=== PATIENT | female | born 2000 | race Caucasian/White ===

== ENCOUNTER 2019-07-26 02:38 | Emergency (ER) | payer OTHER ==
--- NOTE | 2019-07-26 02:44 | ED Physician Documentation ---
History of Present Illness - Stated complaint Stated Complaint: VOMITING - History obtained from History obtained from: Patient (the patient is a 19 y/o AD [employer] F who is stationed at [place] who is on LIMDU for "chronic abd pain" who p/w abd pain and vomiting. The patient is here visiting and had another flare up of her abd pain with vomiting. she denies any hx of abd surgeries. denies hematemesis or hematochezia, describe diffuse abd pain with vomiting, denies drug use.) Review of Systems Constitutional: reports: Reviewed and negative Eyes: reports: Reviewed and negative Ears: reports: Reviewed and negative Nose: reports: Reviewed and negative Throat: reports: Reviewed and negative Cardiac: reports: Reviewed and negative Respiratory: reports: Reviewed and negative GI: reports: Abdominal Pain, Nausea, Vomiting : reports: Reviewed and negative Skin: reports: Reviewed and negative Musculoskeletal: reports: Reviewed and negative Neurologic: reports: Reviewed and negative Psychiatric: reports: Reviewed and negative Endocrine: reports: Reviewed and negative Immunocompromised: reports: Reviewed and negative PD PAST MEDICAL HISTORY - Present Medications Home Medications: Ambulatory Orders Medication Instructions Recorded Confirmed Amitriptyline [Elavil] 75 mg PO DAILY 07/26/19 07/26/19 Ondansetron HCl [Zofran] 1 tab Q8HR 07/26/19 07/26/19 Promethazine [Phenergan] 1 tab Q8HR 07/26/19 07/26/19 - Allergies Allergies/Adverse Reactions: Allergies Allergy/AdvReac Type Severity Reaction Status Date / Time naproxen Allergy Edema Verified 07/26/19 02:49 PD ED PE NORMAL - Vitals Vital signs reviewed: Yes - General General: Alert and oriented X 3, No acute distress, Well developed/nourished - HEENT HEENT: Atraumatic, PERRL, Moist mucous membranes, Pharynx benign - Neck Neck: Supple, no meningeal sign, No adenopathy - Cardiac Cardiac: RRR, No murmur, Strong equal pulses - Respiratory Respiratory: No respiratory distress, Clear bilaterally - Abdomen Abdomen: Soft, Non distended, No organomegaly, Other (diffusely tender to palpation, no guarding, no point ttp, neg murphys/rovsings/psoas, no rebound, no midline abd pulsatile mass) - Derm Derm: Warm and dry - Extremities Extremities: No deformity - Neuro Neuro: Alert and oriented X 3 - Psych Psych: Normal mood, Normal affect Results - Vitals Vitals: Vital Signs - 24 hr 07/26/19 07/26/19 07/26/19 02:40 03:11 03:43 Temperature 36.7 C Heart Rate 92 88 76 Respiratory 18 16 Rate Blood Pressure 113/92 H 99/62 112/68 O2 Saturation 100 100 98 Oxygen O2 Source Room air - Labs Labs: Laboratory Tests 07/26/19 07/26/19 07/26/19 03:05 03:05 03:05 WBC 7.4 RBC 4.35 Hgb 14.2 Hct 40.5 MCV 93.1 MCH 32.6 H MCHC 35.1 RDW 11.7 L Plt Count 209 MPV 9.8 Neut # (Auto) 5.0 Lymph # (Auto) 1.8 Delta # (Auto) 0.5 Eos # (Auto) 0.1 Baso # (Auto) 0.0 Absolute Nucleated RBC 0.00 Nucleated RBC % 0.0 PT 12.7 H INR 1.1 APTT 25.5 Sodium 138 Potassium 3.3 L Chloride 103 Carbon Dioxide 24 Anion Gap 11.0 BUN 11 Creatinine 0.8 Estimated GFR (MDRD) 91 Glucose 103 H POC Whole Bld Glucose Lactic Acid Calcium 9.0 Total Bilirubin 0.8 AST 17 ALT 16 Alkaline Phosphatase 49 Total Creatine Kinase 45 Total Protein 7.1 Albumin 4.3 Globulin 2.8 Albumin/Globulin Ratio 1.5 Lipase 28 07/26/19 07/26/19 03:05 03:19 WBC RBC Hgb Hct MCV MCH MCHC RDW Plt Count MPV Neut # (Auto) Lymph # (Auto) Delta # (Auto) Eos # (Auto) Baso # (Auto) Absolute Nucleated RBC Nucleated RBC % PT INR APTT Sodium Potassium Chloride Carbon Dioxide Anion Gap BUN Creatinine Estimated GFR (MDRD) Glucose POC Whole Bld Glucose 78 Lactic Acid 1.0 Calcium Total Bilirubin AST ALT Alkaline Phosphatase Total Creatine Kinase Total Protein Albumin Globulin Albumin/Globulin Ratio Lipase PD MEDICAL DECISION MAKING - ED course Complexity details: reviewed results, re-evaluated patient (04:44 patient ree xamined, her abd is soft non tender and non distended, she is asking for pain medication, I explained to the patient that she would need to provide a urine sample first. the patient is refusing to provide a urine sample. i discussed with her that her DMITRIY results showed patient visiting multiple ERs in the area with repeated visits her DMITRIY reports shows 16 visits over to non [facility] hospitals over the last 12 months, this does not include her extensive number of visits to [facility] over the last 12 months. The patient is currently on LIMDU for abdominal pain and she is scheduled to go to her medical doctor this morning at 7 am in [place]. I explained that patient should follow up today with [facility]. ), considered differential (acute on chronic abd pain), d/w patient Departure - Departure Disposition: 01 Home, Self Care Clinical Impression: Abdominal pain Qualifiers: Abdominal location: unspecified location Qualified Code(s): R10.9 - Unspecified abdominal pain Condition: Stable Instructions: ED Abdominal Pain Unkn Cause Follow-Up: your, doctor [Other] - 07/26/19 Comments: call your [facility] doctor today for follow up.
[2019-07-26] MEDS ORDERED: MORPHINE 2 MG/ML CARPUJECT IVP STA (02:45)
[2019-07-26] MEDS ORDERED: SODIUM CHLORIDE 0.9% 1,000 ML IV ONE ×2 (02:45→03:51)
[2019-07-26] MEDS ORDERED: ONDANSETRON 4 MG/2 ML VIAL IVP STA (02:45)
[2019-07-26 03:24] LABS: BASOPHILS % (AUTO) 0.5 %; EOSINOPHILS # (AUTO) 0.1 10^3/uL (0.0-0.7); EOSINOPHILS % (AUTO) 1.1 %; HGB - HEMOGLOBIN 14.2 g/dL (12.0-16.0); LYMPHOCYTES # (AUTO) 1.8 10^3/uL (1.5-3.5); LYMPHOCYTES % (AUTO) 23.9 %; MEAN CORPUSCULAR HEMOGLOBIN 32.6 pg (27.0-31.0); MEAN CORPUSCULAR HGB CONC 35.1 g/dL (32.0-36.0); MEAN CORPUSCULAR VOLUME 93.1 fL (81.0-99.0); MEAN PLATELET VOLUME 9.8 fL (7.9-10.8); MONOCYTES # (AUTO) 0.5 10^3/uL (0.0-1.0); MONOCYTES % (AUTO) 6.5 %; NEUTROPHILS % (AUTO) 67.7 %; PLT - PLATELET COUNT 209 10^3/uL (130-450); RED BLOOD COUNT 4.35 10^6/uL (4.20-5.40); RED CELL DISTRIBUTION WIDTH 11.7 % (12.0-15.0); WHITE BLOOD COUNT 7.4 x10^3/uL (4.8-10.8)
[2019-07-26 03:29] LABS: INR 1.1 (0.8-1.2); PT - PROTHROMBIN TIME 12.7 secs (9.9-12.6)
[2019-07-26 03:34] LABS: ALBUMIN 4.3 g/dL (3.2-5.5); ALBUMIN/GLOBULIN RATIO 1.5 (1.0-2.2); BILIRUBIN,TOTAL 0.8 mg/dL (0.2-1.0); CREATININE 0.8 mg/dL (0.4-1.0); TOTAL PROTEIN 7.1 g/dL (6.7-8.2)
[2019-07-26 03:36] LABS: PARTIAL THROMBOPLASTIN TIME 25.5 secs (24.9-33.3)
[2019-07-26 05:11] VITALS: BP 132/76
[2019-07-26 05:25] LABS: MUDS CUTOFF CONCENTRATIONS CUTOFF CONC BELOW:
[2019-07-26 05:26] LABS: GLUCOSE, URINE (UA) 100 mg/dL (NEGATIVE); KETONES,URINE (UA) 40 mg/dL (NEGATIVE); OCCULT BLOOD,URINE NEGATIVE (NEGATIVE)
[2019-07-26 05:39] LABS: CLARITY,URINE CLEAR (CLEAR)
[2019-07-26 05:40] LABS: BILIRUBIN,URINE NEGATIVE (NEGATIVE); ICTOTEST,URINE NEGATIVE
[2019-07-26 05:43] LABS: AMPHETAMINE SCREEN,URINE NEGATIVE (NEGATIVE); BACTERIA,URINE None Seen /HPF (None Seen); BENZODIAZEPINES SCREEN, URINE NEGATIVE (NEGATIVE); COCAINE SCREEN URINE NEGATIVE (NEGATIVE); HCG UR QUAL NEGATIVE; METHADONE SCREEN, URINE NEGATIVE (NEGATIVE); METHAMPHETAMINES SCREEN, URINE NEGATIVE (NEGATIVE); OPIATE SCREEN, URINE POSITIVE (NEGATIVE); OXYCODONE SCREEN, URINE NEGATIVE (NEGATIVE); PROPOXYPHENE SCREEN, URINE NEGATIVE (NEGATIVE); RBC,URINE 0-5 /HPF (0-5); SQUAMOUS EPITHELIAL CELL,UR FEW Squamous (<= Few); TRICYCLIC ANTIDEPRESSANT,URINE POSITIVE (NEGATIVE)
== END 2019-07-26 05:49 | disposition home or self-care (01) ==
LOC: ED 02:38
DX: R10.9 Unspecified abdominal pain (principal)
CPT/HCPCS: 36415; 80053; 80306; 81001; 81003; 81025; 82550; 83605; 83690; 85025; 85610; 85730; 87086; 96374; 99284

== ENCOUNTER 2019-09-06 15:24 | Emergency (ER) | payer OTHER ==
--- NOTE | 2019-09-06 15:42 | ED Physician Documentation ---
PD HPI UPPER EXT INJURY - Stated complaint Stated Complaint: R ARM INJURY - Chief complaint Chief Complaint: Ext Problem - History obtained from History obtained from: Patient - History of Present Illness Location: Right, Shoulder, Elbow, Wrist Type of injury: Fall (fell down long flight of stairs 3 days ago, with landing onto left arm and twisting of the arm/shoulder as she fell. No head injury.) Where injury occurred: Work Timing - onset: How many days ago (2) Timing - details: Abrupt onset, Still present (pain with ROM of elbow and shoulder, wrist tender to palpation) Improved by: Rest Worsened by: Moving, Palpating Associated symptoms: Swelling (mild of elbow and wrist; not shoulder.). No: Weakness, Numbness Similar symptoms before: Diagnosis (had rotator cuff injury with repair few years ago; had goog function of shoulder after.) Review of Systems Constitutional: denies: Fever, Chills Nose: denies: Rhinorrhea / runny nose, Congestion Throat: denies: Sore throat Respiratory: denies: Cough GI: denies: Nausea, Vomiting, Diarrhea Skin: denies: Abrasion (s), Laceration (s) Neurologic: denies: Focal weakness, Numbness, Altered mental status, Headache PD PAST MEDICAL HISTORY - Past Medical History Neuro: Headaches Endocrine/Autoimmune: Other GI: Other Psych: Bipolar disorder - Past Surgical History Past Surgical History: No - Present Medications Home Medications: Ambulatory Orders Medication Instructions Recorded Confirmed Amitriptyline [Elavil] 75 mg PO DAILY 07/26/19 07/26/19 Ondansetron HCl [Zofran] 1 tab Q8HR 07/26/19 07/26/19 Promethazine [Phenergan] 1 tab Q8HR 07/26/19 07/26/19 Tramadol HCl 50 mg PO Q6H PRN #15 tablet 09/06/19 - Allergies Allergies/Adverse Reactions: Allergies Allergy/AdvReac Type Severity Reaction Status Date / Time naproxen Allergy Edema Verified 09/06/19 15:27 - Social History Does the pt smoke?: No Smoking Status: Never smoker Does the pt drink ETOH?: Yes - Immunizations Immunizations are current?: Yes PD ED PE NORMAL - Vitals Vital signs reviewed: Yes - General General: Alert and oriented X 3, No acute distress (but guarding ROM of right arm (shoulder, elbow, wrist)), Well developed/nourished - Derm Derm: Normal color, Warm and dry - Extremities Extremities: No edema. No: Normal ROM s pain (right shoulder has ROM but slow and guarded, but is able to extend to 90 degrees. Hurts with apprehension test. Right elbow with mild effusion. Tender laterally (not at radial head it self). Right wrist with tenderness dorsally. Not tender at snuffbox. Normal sensation in fingers. ) - Neuro Neuro: Alert and oriented X 3, No motor deficit, No sensory deficit Results - Vitals Vitals: Vital Signs - 24 hr 09/06/19 09/06/19 15:27 17:00 Temperature 36.5 C 36.9 C Heart Rate 95 85 Respiratory 16 16 Rate Blood Pressure 124/76 114/78 O2 Saturation 100 98 Oxygen O2 Source Room air - Rads (name of study) right elbow Radiology: Prelim report reviewed (no fractures), EMP read contemporaneously (small anterior sail sign), See rad report right wrist Radiology: Prelim report reviewed (no fractures), See rad report PD MEDICAL DECISION MAKING - ED course Complexity details: considered differential (no fractures seen on xrays. Mechanism would be contusion or sprain elbow and strain shoulder. ), d/w patient Departure - Departure Disposition: 01 Home, Self Care Clinical Impression: Strain of elbow Qualifiers: Encounter type: initial encounter Laterality: right Qualified Code(s): S46.911A - Strain of unspecified muscle, fascia and tendon at shoulder and upper arm level, right arm, initial encounter Right wrist sprain Qualifiers: Encounter type: initial encounter Qualified Code(s): S63.501A - Unspecified sprain of right wrist, initial encounter Right shoulder strain Qualifiers: Encounter type: initial encounter Qualified Code(s): S46.911A - Strain of unspecified muscle, fascia and tendon at shoulder and upper arm level, right arm, initial encounter Fall from slip, trip, or stumble Qualifiers: Encounter type: initial encounter Qualified Code(s): W01.0XXA - Fall on same level from slipping, tripping and stumbling without subsequent striking against object, initial encounter Condition: Stable Record reviewed to determine appropriate education?: Yes Instructions: ED Sprain Elbow Follow-Up: RACHEL Padilla [Provider Group] Prescriptions: Tramadol HCl 50 mg PO Q6H PRN #15 tablet PRN Reason: Pain Comments: I do not see anything broken on x-ray. The official report will follow. There is some swelling in the right elbow joint seen on x-ray which typically represents some injury in the joint itself. This likely is a sprain of the elbow and also a sprain of the wrist and shoulder. You should be improved with use of a sling and light use of the arm for the next week. Tylenol 3-4 times a day. To that add tramadol if needed for worse pain. I would anticipate improvement over the next several days and resolution within a week if you are allowed to do only light use of the right arm. Forms: Activity restrictions Discharge Date/Time: 09/06/19 17:01
[2019-09-06] MEDS ORDERED: ACETAMINOPHEN 325 MG TABLET PO STA (16:08)
--- NOTE | 2019-09-06 16:46 | XRAY Report ---
Reason: fall to right arm/wrist Procedure Date: 09/06/2019 Accession Number: [id number] / [id number] Procedure: XR - Elbow 3 View RT CPT Code: Final Report FULL RESULT: EXAM: RIGHT ELBOW RADIOGRAPHY EXAM DATE: 09/06/2019 04:34 PM. CLINICAL HISTORY: Fall to right arm/wrist. COMPARISON: None. TECHNIQUE: 3 views. FINDINGS: Bones: Normal. No fractures or bone lesions. Joints: Normal. No effusion. No subluxation. Soft Tissues: Normal. No soft tissue swelling. IMPRESSION: Negative elbow. RADIA
--- NOTE | 2019-09-06 16:48 | XRAY Report ---
Reason: fall onto right arm/wrist Procedure Date: 09/06/2019 Accession Number: [id number] / [id number] Procedure: XR - Wrist 3 View RT CPT Code: Final Report FULL RESULT: EXAM: RIGHT WRIST RADIOGRAPHY EXAM DATE: 09/06/2019 04:32 PM. CLINICAL HISTORY: Fall onto right arm/wrist. COMPARISON: None. TECHNIQUE: 3 views. FINDINGS: Bones: Normal. No fractures or bone lesions. Joints: The joint space and alignment appear satisfactory. Soft Tissues: Normal. No soft tissue swelling. IMPRESSION: Negative for fracture and subluxation. RADIA
[2019-09-06 17:01] VITALS: BP 114/78
--- NOTE | 2019-09-10 14:10 | ED Physician Documentation ---
ED Addendum - Addendum Addendum: 09/10/19 14:09 Pharmacy called because there was a note on the prescription that said it was not for dispensing. It does not look like it was E prescribed and I do not know why this came up on there. The manager application development will coordinate with pharmacy to see why this happened but in the interim I wrote a handwritten prescription for the tramadol for the patient and asked the [employer] DRIVER to call the pharmacy to coordinate how we can get this to them.
== END 2019-09-06 17:01 | disposition home or self-care (01) ==
LOC: ED 15:24
DX: S46.811A Strain of other muscles, fascia and tendons at shoulder and upper arm level, right arm, initial encounter (principal); S63.501A Unspecified sprain of right wrist, initial encounter; W10.9XXA Fall (on) (from) unspecified stairs and steps, initial encounter
CPT/HCPCS: 73080; 73110; 99283; A9270

== ENCOUNTER 2019-12-19 17:33 | Emergency (ER) | payer OTHER ==
--- NOTE | 2019-12-19 18:16 | XRAY Report ---
PROCEDURE: Hand 3 View RT INDICATIONS: fall, R hand pain TECHNIQUE: 3 views of the hand(s) acquired. COMPARISON: Right wrist radiographs dated 09/06/2019 FINDINGS: Bones: No acute fractures or dislocations. No suspicious bony lesions. Soft tissues: No suspicious soft tissue calcifications. IMPRESSION: No acute osseous abnormality is identified. Reviewed by: Herman Claros MD on 12/19/2019 6:15 PM PDT Approved by: Herman Claros MD on 12/19/2019 6:15 PM PDT Station ID: [id number]
[2019-12-19] MEDS ORDERED: HYDROcod/ACETAM 5/325 MG TABLET PO STA (18:30)
[2019-12-19 18:36] VITALS: BP 114/82
--- NOTE | 2019-12-19 18:39 | ED Physician Documentation ---
PD HPI UPPER EXT INJURY - Stated complaint Stated Complaint: RT HAND INJ - Chief complaint Chief Complaint: Trauma Ext - History obtained from History obtained from: Patient - History of Present Illness Location: Right, Hand Type of injury: Fall Where injury occurred: [place] Timing - onset: Yesterday Timing - duration: Days (1) Timing - details: Abrupt onset Pain level max: 8 Pain level now: 8 Improved by: Rest Worsened by: Moving, Palpating Associated symptoms: Swelling Similar symptoms before: Has not had sx before Recently seen: Not recently seen - Additonal information Additional information: Patient states that she was "rock sliding" yesterday when she accidentally jammed her right hand. She states that it is increasingly painful today. Worse with movement and better with rest. Patient is right-handed. Review of Systems Constitutional: denies: Fever, Chills Nose: denies: Rhinorrhea / runny nose, Congestion : denies: Now EGA Neurologic: denies: Focal weakness, Numbness PD PAST MEDICAL HISTORY - Past Medical History Cardiovascular: None Respiratory: None Neuro: Headaches Endocrine/Autoimmune: Other GI: Other : None HEENT: None Psych: Bipolar disorder Musculoskeletal: None Derm: None Other Past Medical History: dyspepsia - Past Surgical History Past Surgical History: No Ortho: Rotator cuff repair - Present Medications Home Medications: Ambulatory Orders Medication Instructions Recorded Confirmed Amitriptyline [Elavil] 75 mg PO DAILY 07/26/19 07/26/19 Ondansetron HCl [Zofran] 1 tab Q8HR 07/26/19 07/26/19 Promethazine [Phenergan] 1 tab Q8HR 07/26/19 07/26/19 Tramadol HCl 50 mg PO Q6H PRN #15 tablet 09/06/19 HYDROcod/ACETAM 5/325 [[place] 5/325] 1 - 2 ea PO Q6H PRN #8 tablet 12/19/19 - Allergies Allergies/Adverse Reactions: Allergies Allergy/AdvReac Type Severity Reaction Status Date / Time naproxen Allergy Edema Verified 12/19/19 17:38 - Social History Does the pt smoke?: No Smoking Status: Current some day smoker Does the pt drink ETOH?: Yes Does the pt have substance abuse?: No - Immunizations Immunizations are current?: Yes PD ED PE NORMAL - Vitals Vital signs reviewed: Yes - General General: Alert and oriented X 3, No acute distress - HEENT HEENT: Moist mucous membranes - Neck Neck: Supple, no meningeal sign - Cardiac Cardiac: RRR - Respiratory Respiratory: No respiratory distress, Clear bilaterally - Derm Derm: Warm and dry - Extremities Extremities: Other (R hand - diffuse TTP, no snuffbox tenderness. No deformity. Mild swelling. Neurovascular intact.) - Neuro Neuro: Alert and oriented X 3 Results - Vitals Vitals: Vital Signs - 24 hr 12/19/19 12/19/19 17:38 18:34 Temperature 37.5 C 36.8 C Heart Rate 104 H 77 Respiratory 16 16 Rate Blood Pressure 122/82 H 114/82 H O2 Saturation 98 98 Oxygen O2 Source Room air - Rads (name of study) Right hand x-ray Radiology: Prelim report reviewed, EMP read contemporaneously, See rad report (No acute abnormality) Procedures - Splint (location) Right hand Splint applied by: Physician Type of splint: Fiberglass, Short arm, Volar cock up Other: Patient tolerated well, No complications, Neurovascular intact PD MEDICAL DECISION MAKING - ED course Complexity details: reviewed results, re-evaluated patient, considered differential, d/w patient ED course: Patient with a right hand sprain. Placed in a volar splint for comfort. Patient tolerated well. Will prescribe pain medication for home and have her follow-up with her doctor for further care. If she is still having pain in 1 week, she can have repeat x-rays with her doctor at that time. Patient counseled regarding signs and symptoms for which I believe and urgent re- evaluation would be necessary. Patient with good understanding of and agreement to plan and is comfortable going home at this time This document was made in part using voice recognition software. While efforts are made to proofread this document, sound alike and grammatical errors may occur. No evidence of scaphoid fracture on exam. Departure - Departure Disposition: 01 Home, Self Care Clinical Impression: Sprain of right hand Qualifiers: Encounter type: initial encounter Qualified Code(s): S63.91XA - Sprain of unspecified part of right wrist and hand, initial encounter Condition: Good Instructions: ED Sprain Hand Follow-Up: your,doctor in 5 days for recheck [Other] Prescriptions: HYDROcod/ACETAM 5/325 [[place] 5/325] 1 - 2 ea PO Q6H PRN #8 tablet PRN Reason: Pain Comments: Your x-ray does not show any acute abnormalities today. Follow-up with your doctor for further care. Return if you worsen. You can wear the splint as needed for comfort. Do not wear it for longer than a week. Do not drink alcohol or drive while on narcotic pain medicine. Note that many narcotic pain relievers also contain tylenol/acetaminophen. Please ensure that your total dose of acetaminophen from all sources does not exceed 3 grams (3000mg) per day. You may constipated on this medication, take a stool softener such as "Colace" twice a day while you are on it. Also recommend a gvwd-scq-flucdbe laxative such as senna or MiraLAX any day that you do not have a bowel movement. If you received narcotic pain medication in the emergency department, do not drive or operate machinery for the next 24 hours. Discharge Date/Time: 12/19/19 18:53
== END 2019-12-19 18:53 | disposition home or self-care (01) ==
LOC: ED 17:33
DX: S63.91XA Sprain of unspecified part of right wrist and hand, initial encounter (principal); W23.1XXA Caught, crushed, jammed, or pinched between stationary objects, initial encounter; Y92.830 Public park as the place of occurrence of the external cause; Y93.31 Activity, mountain climbing, rock climbing and wall climbing; F17.200 Nicotine dependence, unspecified, uncomplicated
CPT/HCPCS: 29125; 73130; 99283; 99284; A9270

== ENCOUNTER 2020-01-13 02:41 | Emergency (ER) | payer OTHER ==
--- NOTE | 2020-01-13 02:50 | ED Physician Documentation ---
History of Present Illness - Stated complaint Stated Complaint: INCISION CHECK/FEVER - History obtained from History obtained from: Patient - Additonal information Additional information: 19-year-old female who states that she is postoperative day 7 from a laparoscopic cholecystectomy done at hospital in [place]. Today she would like her wounds evaluated and thinks they could possibly be infected currently she denies fevers she reports chronic nausea and chronic abdominal pain.She also thinks that she is dehydrated but states that she has been eating and drinking usual and producing clear urine and moving her bowels and passing gas. Review of Systems Constitutional: reports: Reviewed and negative Eyes: reports: Reviewed and negative Ears: reports: Reviewed and negative Nose: reports: Reviewed and negative Throat: reports: Reviewed and negative Cardiac: reports: Reviewed and negative Respiratory: reports: Reviewed and negative GI: reports: Nausea, Reviewed and negative : reports: Reviewed and negative Skin: reports: Other (Wound check) Musculoskeletal: reports: Reviewed and negative Neurologic: reports: Reviewed and negative Psychiatric: reports: Reviewed and negative Endocrine: reports: Reviewed and negative Immunocompromised: reports: Reviewed and negative PD PAST MEDICAL HISTORY - Past Medical History Cardiovascular: None Respiratory: None Neuro: Headaches Endocrine/Autoimmune: Other GI: Other : None HEENT: None Psych: Bipolar disorder Musculoskeletal: None Derm: None - Past Surgical History Past Surgical History: No Ortho: Rotator cuff repair - Present Medications Home Medications: Ambulatory Orders Medication Instructions Recorded Confirmed Amitriptyline [Elavil] 75 mg PO DAILY 07/26/19 07/26/19 Ondansetron HCl [Zofran] 1 tab Q8HR 07/26/19 07/26/19 Promethazine [Phenergan] 1 tab Q8HR 07/26/19 07/26/19 Tramadol HCl 50 mg PO Q6H PRN #15 tablet 09/06/19 HYDROcod/ACETAM 5/325 [[place] 5/325] 1 - 2 ea PO Q6H PRN #8 tablet 12/19/19 - Allergies Allergies/Adverse Reactions: Allergies Allergy/AdvReac Type Severity Reaction Status Date / Time naproxen Allergy Edema Verified 01/13/20 02:59 - Social History Does the pt smoke?: No Smoking Status: Current some day smoker Does the pt drink ETOH?: Yes Does the pt have substance abuse?: No - Immunizations Immunizations are current?: Yes PD ED PE NORMAL - Vitals Vital signs reviewed: Yes - General General: Alert and oriented X 3, No acute distress, Well developed/nourished - HEENT HEENT: PERRL, Moist mucous membranes - Neck Neck: Supple, no meningeal sign - Cardiac Cardiac: RRR, No murmur, Strong equal pulses - Respiratory Respiratory: Clear bilaterally - Abdomen Abdomen: Normal bowel sounds, Soft, Non tender, Non distended, No organomegaly, Other - Derm Derm: Warm and dry - Extremities Extremities: No deformity - Neuro Neuro: Alert and oriented X 3 - Psych Psych: Normal mood, Normal affect - Free text exam Free text exam: Abdominal exam shows abdomen be soft, nontender nondistended with normoactive bowel sounds no guarding or rebound hepatosplenomegaly no CVA tenderness incision sites are well-healed and approximated with no signs of infection there is no discharge no fluctuance no induration and no crepitus. Results - Vitals Vitals: Vital Signs - 24 hr 01/13/20 01/13/20 01/13/20 02:56 03:39 04:08 Temperature 37.1 C Heart Rate 84 Respiratory 16 17 16 Rate Blood Pressure 136/71 H O2 Saturation 100 01/13/20 04:10 Temperature Heart Rate 77 Respiratory 16 Rate Blood Pressure 130/84 H O2 Saturation 100 Oxygen O2 Source Room air PD MEDICAL DECISION MAKING - ED course ED course: Stop wound check according to the patient that day #7. On further evaluation she reported subjective fever at home I did recommend a urinalysis the patient's refusing to provide urinalysis. She has been reexamined multiple times her abdomen soft she has had a normal steady gait with no peritoneal signsPace patient is encouraged to follow-up with her surgeon today as well as her primary care provider today. Patient is agreeable to this plan. Departure - Departure Disposition: 01 Home, Self Care Clinical Impression: Visit for wound check Condition: Stable Instructions: ED Sutr Check No Infec Follow-Up: your, doctor [Other] Comments: follow up with your primary care provider and your general surgeon today. Discharge Date/Time: 01/13/20 04:15
[2020-01-13] MEDS ORDERED: ONDANSETRON ODT 4 MG TABLET TL STA (03:25)
[2020-01-13 04:15] VITALS: BP 130/84
== END 2020-01-13 04:15 | disposition home or self-care (01) ==
LOC: ED 02:41
DX: Z04.89 Encounter for examination and observation for other specified reasons (principal); F17.200 Nicotine dependence, unspecified, uncomplicated; Z98.890 Other specified postprocedural states
CPT/HCPCS: 99283; Q0162

== ENCOUNTER 2020-01-25 15:49 | Emergency (ER) | payer OTHER ==
[2020-01-25 16:21] LABS: BILIRUBIN,URINE NEGATIVE (NEGATIVE); GLUCOSE, URINE (UA) NEGATIVE (NEGATIVE); KETONES,URINE (UA) NEGATIVE (NEGATIVE); LEUKOCYTE ESTERASE, URINE NEGATIVE (NEGATIVE); NITRITE,URINE NEGATIVE (NEGATIVE); OCCULT BLOOD,URINE TRACE-INTA (NEGATIVE); PROTEIN,URINE NEGATIVE (NEGATIVE); UROBILINOGEN,URINE 0.2 (NORMAL) E.U./dL (NORMAL)
[2020-01-25 16:23] LABS: CLARITY,URINE CLEAR (CLEAR)
[2020-01-25 16:24] LABS: HCG UR QUAL NEGATIVE
[2020-01-25 16:26] LABS: BASOPHILS % (AUTO) 0.7 %; EOSINOPHILS # (AUTO) 0.1 10^3/uL (0.0-0.7); EOSINOPHILS % (AUTO) 1.5 %; HGB - HEMOGLOBIN 14.9 g/dL (12.0-16.0); LYMPHOCYTES # (AUTO) 1.6 10^3/uL (1.5-3.5); LYMPHOCYTES % (AUTO) 29.5 %; MEAN CORPUSCULAR HEMOGLOBIN 31.1 pg (27.0-31.0); MEAN CORPUSCULAR HGB CONC 33.6 g/dL (32.0-36.0); MEAN CORPUSCULAR VOLUME 92.5 fL (81.0-99.0); MEAN PLATELET VOLUME 9.2 fL (7.9-10.8); MONOCYTES # (AUTO) 0.5 10^3/uL (0.0-1.0); MONOCYTES % (AUTO) 8.2 %; NEUTROPHILS # (AUTO) 3.3 10^3/uL (1.5-6.6); NEUTROPHILS % (AUTO) 59.7 %; PLT - PLATELET COUNT 280 10^3/uL (130-450); RED BLOOD COUNT 4.79 10^6/uL (4.20-5.40); RED CELL DISTRIBUTION WIDTH 12.2 % (12.0-15.0); WHITE BLOOD COUNT 5.5 x10^3/uL (4.8-10.8)
[2020-01-25 16:42] LABS: ALBUMIN 4.1 g/dL (3.2-5.5); ALBUMIN/GLOBULIN RATIO 1.3 (1.0-2.2); BILIRUBIN,TOTAL 0.5 mg/dL (0.2-1.0); CALCIUM 9.1 mg/dL (8.5-10.3); CREATININE 0.8 mg/dL (0.4-1.0); TOTAL PROTEIN 7.3 g/dL (6.7-8.2)
--- NOTE | 2020-01-25 17:39 | ED Physician Documentation ---
PD HPI NVD - Stated complaint Stated Complaint: ABD PX/VOM/POST OP - Chief complaint Chief Complaint: Abd Pain - History obtained from History obtained from: Patient - History of Present Illness Timing - onset: Today, Yesterday Timing - duration: Days (1-2) Timing - details: Gradual onset (has had upper abd pains fairly regularly and sees GI specialist. Consideration for gallbladder as cause, so had CCY earlier this month. The surgical sites healing okay. Has had upper abd pain again yest/today similar to prior. Had just returned to work yesterday as well, so more active since surgery) Associated symptoms: Abdominal pain. No: Fever, Near syncope / syncope, Dysuria Contributing factors: No: Sick contact, Bad food Improved by: Laying still Worsened by: Moving, Palpation Similar symptoms before: No diagnosis (not clear diagnosis of her abd pain episodes, per pt.) Recently seen: Surgery (Jan 11, had CCY done in [place].) Review of Systems Constitutional: denies: Fever, Chills Nose: denies: Rhinorrhea / runny nose, Congestion Throat: denies: Sore throat Respiratory: denies: Cough GI: reports: Abdominal Pain, Nausea. 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 : None HEENT: None Psych: Bipolar disorder Musculoskeletal: None Derm: None - Past Surgical History Past Surgical History: No General: Cholecystectomy Ortho: Rotator cuff repair - Present Medications Home Medications: Ambulatory Orders Medication Instructions Recorded Confirmed Amitriptyline [Elavil] 75 mg PO DAILY 07/26/19 07/26/19 Ondansetron HCl [Zofran] 1 tab Q8HR 07/26/19 07/26/19 Promethazine [Phenergan] 1 tab Q8HR 07/26/19 07/26/19 Tramadol HCl 50 mg PO Q6H PRN #15 tablet 09/06/19 HYDROcod/ACETAM 5/325 [[place] 5/325] 1 - 2 ea PO Q6H PRN #8 tablet 12/19/19 Hydrocodone/Acetaminophen [[place] 1 each PO Q6H PRN #15 tablet 01/25/20 5-325 Tablet] Ondansetron Odt [Zofran] 4 mg TL Q6H PRN #10 tablet 01/25/20 Promethazine Supp [Phenergan Supp] 25 mg ID Q6H PRN #10 supp 01/25/20 - Allergies Allergies/Adverse Reactions: Allergies Allergy/AdvReac Type Severity Reaction Status Date / Time naproxen Allergy Edema Verified 01/25/20 15:58 - Social History Does the pt smoke?: No Smoking Status: Current some day smoker Does the pt drink ETOH?: Yes Does the pt have substance abuse?: No - Immunizations Immunizations are current?: Yes - POLST Patient has POLST: No PD ED PE NORMAL - Vitals Vital signs reviewed: Yes - General General: Alert and oriented X 3, Well developed/nourished, Other (appears in pain) - HEENT HEENT: Pharynx benign - Neck Neck: Supple, no meningeal sign, No adenopathy - Cardiac Cardiac: RRR, No murmur - Respiratory Respiratory: Clear bilaterally - Abdomen Abdomen: Normal bowel sounds, Soft, Non distended, Other (surgical wounds appear well healing without signs infection. Not particularly tender RUQ, but more in epigastric area. No percussion tender. ) - Female Female : Deferred - Rectal Rectal: Deferred - Derm Derm: Normal color, Warm and dry Results - Vitals Vitals: Vital Signs - 24 hr 01/25/20 01/25/20 01/25/20 15:58 18:18 18:30 Temperature 36.5 C Heart Rate 100 89 89 Respiratory 16 18 18 Rate Blood Pressure 123/62 109/68 106/75 O2 Saturation 100 100 100 01/25/20 19:21 Temperature 36.7 C Heart Rate 95 Respiratory 16 Rate Blood Pressure 117/81 H O2 Saturation 97 Oxygen O2 Source Room air - Labs Labs: Laboratory Tests 01/25/20 01/25/20 01/25/20 16:00 16:21 16:21 WBC 5.5 RBC 4.79 Hgb 14.9 Hct 44.3 MCV 92.5 MCH 31.1 H MCHC 33.6 RDW 12.2 Plt Count 280 MPV 9.2 Neut # (Auto) 3.3 Lymph # (Auto) 1.6 [place] # (Auto) 0.5 Eos # (Auto) 0.1 Baso # (Auto) 0.0 Absolute Nucleated RBC 0.00 Nucleated RBC % 0.0 Sodium 140 Potassium 3.9 Chloride 104 Carbon Dioxide 26 Anion Gap 10.0 BUN 9 Creatinine 0.8 Estimated GFR (MDRD) 91 Glucose 92 Calcium 9.1 Total Bilirubin 0.5 AST 19 ALT 22 Alkaline Phosphatase 56 Total Protein 7.3 Albumin 4.1 Globulin 3.2 Albumin/Globulin Ratio 1.3 Lipase 41 Urine Color YELLOW Urine Clarity CLEAR Urine pH 7.0 Ur Specific [place] 1.020 Urine Protein NEGATIVE Urine Glucose (UA) NEGATIVE Urine Ketones NEGATIVE Urine Occult Blood TRACE-INTA Urine Nitrite NEGATIVE Urine Bilirubin NEGATIVE Urine Urobilinogen 0.2 (NORMAL) Ur Leukocyte Esterase NEGATIVE Ur Microscopic Review NOT INDICATED Urine Culture Comments NOT INDICATED Urine HCG, Qual NEGATIVE PD MEDICAL DECISION MAKING - ED course Complexity details: re-evaluated patient (Improved with some meds and fluids here. ), considered differential (Clnically low suspicion for post op complication. Did not see need for CT at this time. Can be some adhesion pain or just recurrence of prior abd pain process and gallbladder was incidental. ), d/w patient Departure - Departure Disposition: 01 Home, Self Care Clinical Impression: Upper abdominal pain Condition: Stable Record reviewed to determine appropriate education?: Yes Instructions: ED Abdominal Pain Unkn Cause Follow-Up: [facility] [Provider Group] Prescriptions: Hydrocodone/Acetaminophen [[place] 5-325 Tablet] 1 each PO Q6H PRN #15 tablet PRN Reason: Pain Promethazine Supp [Phenergan Supp] 25 mg ID Q6H PRN #10 supp PRN Reason: Nausea / Vomiting Ondansetron Odt [Zofran] 4 mg TL Q6H PRN #10 tablet PRN Reason: Nausea / Vomiting Comments: Your basic blood tests are normal here. I would have you rest for a couple of days and stay well-hydrated. Use ondansetron if needed for nausea. Alternatively promethazine suppositories if needed if you are vomiting. Use Tylenol 500 mg 4 times a day regularly for the next several days to week. Add hydrocodone if needed for worse pain in the short-term. Follow-up with your primary care or speech correction assistant regarding further treatment options. Forms: Activity restrictions Discharge Date/Time: 01/25/20 19:22
[2020-01-25] MEDS ORDERED: ONDANSETRON 4 MG/2 ML VIAL IVP STA ×2 (17:59→19:00)
[2020-01-25] MEDS ORDERED: SODIUM CHLORIDE 0.9% 1,000 ML IV STA (17:59)
[2020-01-25] MEDS ORDERED: KETOROLAC 15 MG/ML VIAL IVP STA (17:59)
[2020-01-25] MEDS ORDERED: HYDROmorphone 1 MG/ML CARPUJECT IVP STA ×2 (17:59→19:00)
[2020-01-25 19:22] VITALS: BP 117/81
== END 2020-01-25 19:22 | disposition home or self-care (01) ==
LOC: ED 15:49
DX: R10.13 Epigastric pain (principal); R11.0 Nausea
CPT/HCPCS: 36415; 80053; 81003; 81025; 83690; 85025; 96361; 96374; 96375; 96376; 99283; 99284; J1170; 81001; 87086

== ENCOUNTER 2020-03-27 16:03 | Emergency (ER) | payer OTHER ==
--- NOTE | 2020-03-27 16:13 | ED Physician Documentation ---
PD HPI ABD PAIN - Stated complaint Stated Complaint: VOMITING,ABD PX - Chief complaint Chief Complaint: Abd Pain - History obtained from History obtained from: Patient - History of Present Illness Timing - onset: Chronic Pain level max: 9 Pain level now: 8 Quality: Aching, Pain Location: Epigastric Improved by: Other (nothing) Worsened by: Eating Associated symptoms: Nausea, Vomiting. No: Fever, Hematemesis, Diarrhea, Consti pation, Melena, Hematochezia, Dysuria Similar symptoms before: Diagnosis (chronic abd pain, vomiting.) - Additional information Additional information: 20-year-old female presents to emergency department complaint of epigastric pain. She states is been ongoing for several years. Patient states that her last endoscopy was several years ago. She is followed by a major case detective at [place]. She took Zofran and Phenergan without relief. States she has to go to the emergency department a few times a year for pain control and vomiting. She is status post cholecystectomy approximately 2 months ago. Her symptoms have not changed since that time. 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 : None HEENT: None Psych: Bipolar disorder Musculoskeletal: None Derm: None - Past Surgical History Past Surgical History: No General: Cholecystectomy Ortho: Rotator cuff repair - Present Medications Home Medications: Ambulatory Orders Medication Instructions Recorded Confirmed Amitriptyline [Elavil] 75 mg PO DAILY 07/26/19 07/26/19 Ondansetron HCl [Zofran] 1 tab Q8HR 07/26/19 07/26/19 Promethazine [Phenergan] 1 tab Q8HR 07/26/19 07/26/19 Tramadol HCl 50 mg PO Q6H PRN #15 tablet 09/06/19 HYDROcod/ACETAM 5/325 [[place] 5/325] 1 - 2 ea PO Q6H PRN #8 tablet 12/19/19 Hydrocodone/Acetaminophen [[place] 1 each PO Q6H PRN #15 tablet 01/25/20 5-325 Tablet] Ondansetron Odt [Zofran] 4 mg TL Q6H PRN #10 tablet 01/25/20 Promethazine Supp [Phenergan Supp] 25 mg [place] Q6H PRN #10 supp 01/25/20 - Allergies Allergies/Adverse Reactions: Allergies Allergy/AdvReac Type Severity Reaction Status Date / Time naproxen Allergy Edema Verified 03/27/20 16:11 - Social History Does the pt smoke?: No Smoking Status: Current some day smoker Does the pt drink ETOH?: Yes Does the pt have substance abuse?: No - Immunizations Immunizations are current?: Yes - POLST Patient has POLST: No PD ED PE NORMAL - Vitals Vital signs reviewed: Yes - General General: Alert and oriented X 3, No acute distress, Well developed/nourished - HEENT HEENT: PERRL, Moist mucous membranes - Neck Neck: Supple, no meningeal sign - Cardiac Cardiac: RRR, Strong equal pulses - Respiratory Respiratory: No respiratory distress, Clear bilaterally - Abdomen Abdomen: Normal bowel sounds, Soft, Non distended, Other (Mild tenderness palpation epigastric without peritoneal signs.) - Back Back: No CVA TTP, No spinal TTP - Derm Derm: Warm and dry - Extremities Extremities: No edema - Neuro Neuro: Alert and oriented X 3 - Psych Psych: Normal mood, Normal affect Results - Vitals Vitals: Vital Signs - 24 hr 03/27/20 03/27/20 03/27/20 16:07 17:13 17:51 Temperature 36.9 C Heart Rate 122 H 93 101 H Respiratory 18 18 18 Rate Blood Pressure 149/92 H 111/75 110/73 O2 Saturation 100 100 100 03/27/20 03/27/20 18:00 18:30 Temperature Heart Rate 99 96 Respiratory 18 18 Rate Blood Pressure 106/88 H 110/66 O2 Saturation 100 98 Oxygen O2 Source Room air - Labs Labs: Laboratory Tests 03/27/20 03/27/20 03/27/20 16:50 16:50 17:48 WBC 6.8 RBC 4.92 Hgb 15.5 Hct 44.8 MCV 91.1 MCH 31.5 H MCHC 34.6 RDW 12.1 Plt Count 234 MPV 9.4 Neut # (Auto) 4.7 Lymph # (Auto) 1.5 [place] # (Auto) 0.4 Eos # (Auto) 0.1 Baso # (Auto) 0.1 Absolute Nucleated RBC 0.00 Nucleated RBC % 0.0 Sodium 138 Potassium 3.7 Chloride 97 L Carbon Dioxide 26 Anion Gap 15.0 H BUN 10 Creatinine 0.8 Estimated GFR (MDRD) 91 Glucose 108 H Calcium 9.5 Total Bilirubin 0.5 AST 15 ALT 16 Alkaline Phosphatase 63 Total Protein 7.5 Albumin 4.3 Globulin 3.2 Albumin/Globulin Ratio 1.3 Lipase 40 Urine Color YELLOW Urine Clarity CLEAR Urine pH 7.5 Ur Specific [place] 1.015 Urine Protein NEGATIVE Urine Glucose (UA) NEGATIVE Urine Ketones NEGATIVE Urine Occult Blood NEGATIVE Urine Nitrite NEGATIVE Urine Bilirubin NEGATIVE Urine Urobilinogen 0.2 (NORMAL) Ur Leukocyte Esterase NEGATIVE Ur Microscopic Review NOT INDICATED Urine Culture Comments NOT INDICATED Urine HCG, Qual NEGATIVE PD MEDICAL DECISION MAKING - ED course Complexity details: reviewed results, re-evaluated patient, considered differential, d/w patient, d/w family ED course: 20-year-old female with chronic abdominal pain and vomiting. Feels much better after IV fluids, morphine, Phenergan, Zofran, Protonix. Does have a history of dyspepsia. We will have her follow-up with her doctor for further care. She does have medications for home already. Patient denies any marijuana use. Denies any other drug use. Patient counseled regarding signs and symptoms for which I believe and urgent re-evaluation would be necessary. Patient with good understanding of and agreement to plan and is comfortable going home at this time This document was made in part using voice recognition software. While efforts are made to proofread this document, sound alike and grammatical errors may occur. Departure - Departure Disposition: 01 Home, Self Care Clinical Impression: Vomiting Qualifiers: Vomiting type: unspecified Vomiting Intractability: non-intractable Nausea presence: with nausea Qualified Code(s): R11.2 - Nausea with vomiting, u nspecified Condition: Good Instructions: ED Nausea Vomiting Follow-Up: KYM LI MD [Primary Care Provider] - Within 1 week Comments: Continue your medications as needed at home. Return if you worsen. Follow-up with your doctor for further care. Discharge Date/Time: 03/27/20 19:18
[2020-03-27] MEDS ORDERED: SODIUM CHLORIDE 0.9% 1,000 ML IV STA (16:14)
[2020-03-27] MEDS ORDERED: ONDANSETRON 4 MG/2 ML VIAL IVP STA (16:14)
[2020-03-27] MEDS ORDERED: PROMETHAZINE INJ 25 MG in SODIUM CHLORIDE 0.9% 50 ML IV STA (16:47)
[2020-03-27 16:54] LABS: BASOPHILS # (AUTO) 0.1 10^3/uL (0.0-0.1); BASOPHILS % (AUTO) 0.7 %; EOSINOPHILS # (AUTO) 0.1 10^3/uL (0.0-0.7); EOSINOPHILS % (AUTO) 1.6 %; HGB - HEMOGLOBIN 15.5 g/dL (12.0-16.0); LYMPHOCYTES # (AUTO) 1.5 10^3/uL (1.5-3.5); LYMPHOCYTES % (AUTO) 22.5 %; MEAN CORPUSCULAR HEMOGLOBIN 31.5 pg (27.0-31.0); MEAN CORPUSCULAR HGB CONC 34.6 g/dL (32.0-36.0); MEAN CORPUSCULAR VOLUME 91.1 fL (81.0-99.0); MEAN PLATELET VOLUME 9.4 fL (7.9-10.8); MONOCYTES # (AUTO) 0.4 10^3/uL (0.0-1.0); MONOCYTES % (AUTO) 5.9 %; NEUTROPHILS # (AUTO) 4.7 10^3/uL (1.5-6.6); PLT - PLATELET COUNT 234 10^3/uL (130-450); RED BLOOD COUNT 4.92 10^6/uL (4.20-5.40); RED CELL DISTRIBUTION WIDTH 12.1 % (12.0-15.0); WHITE BLOOD COUNT 6.8 x10^3/uL (4.8-10.8)
[2020-03-27 17:07] LABS: ALBUMIN 4.3 g/dL (3.2-5.5); ALBUMIN/GLOBULIN RATIO 1.3 (1.0-2.2); BILIRUBIN,TOTAL 0.5 mg/dL (0.2-1.0); CALCIUM 9.5 mg/dL (8.5-10.3); CREATININE 0.8 mg/dL (0.4-1.0); TOTAL PROTEIN 7.5 g/dL (6.7-8.2)
[2020-03-27] MEDS ORDERED: PANTOPRAZOLE 40 MG VIAL IVP STA (17:31)
[2020-03-27] MEDS ORDERED: MORPHINE 2 MG/ML CARPUJECT IVP STA ×2 (17:31→18:52)
[2020-03-27 17:59] LABS: BILIRUBIN,URINE NEGATIVE (NEGATIVE); GLUCOSE, URINE (UA) NEGATIVE (NEGATIVE); KETONES,URINE (UA) NEGATIVE (NEGATIVE); LEUKOCYTE ESTERASE, URINE NEGATIVE (NEGATIVE); NITRITE,URINE NEGATIVE (NEGATIVE); OCCULT BLOOD,URINE NEGATIVE (NEGATIVE); PH,URINE 7.5 PH (5.0-7.5); PROTEIN,URINE NEGATIVE (NEGATIVE); UROBILINOGEN,URINE 0.2 (NORMAL) E.U./dL (NORMAL)
[2020-03-27 18:04] LABS: CLARITY,URINE CLEAR (CLEAR)
[2020-03-27 18:05] LABS: HCG UR QUAL NEGATIVE
[2020-03-27 18:44] VITALS: BP 110/66
== END 2020-03-27 19:18 | disposition home or self-care (01) ==
LOC: ED 16:03
DX: R11.2 Nausea with vomiting, unspecified (principal); R10.13 Epigastric pain; G89.29 Other chronic pain; Z90.49 Acquired absence of other specified parts of digestive tract; Z87.19 Personal history of other diseases of the digestive system
CPT/HCPCS: 36415; 80053; 81003; 81025; 83690; 85025; 96365; 96375; 96376; 99283; 99284; J7040; 81001; 87086

== ENCOUNTER 2020-04-03 16:17 | Emergency (ER) | payer OTHER ==
--- NOTE | 2020-04-03 16:45 | ED Physician Documentation ---
PD HPI ABD PAIN - Stated complaint Stated Complaint: ABD PX, NAUSEA, FEVER - Chief complaint Chief Complaint: Abd Pain - History obtained from History obtained from: Patient - History of Present Illness Timing - onset: Chronic Timing - duration: Years (1.5) Timing - details: Gradual onset Pain level max: 8 Pain level now: 7 Quality: Aching, Pain Location: Epigastric Radiation: No: Chest, , Lower back, Left flank, Left shoulder, Right flank, Right shoulder, Upper back Improved by: Other (nothing) Worsened by: Eating Associated symptoms: Nausea, Vomiting. No: Fever, Hematemesis, Diarrhea, Constipation, Melena, Hematochezia, Dysuria, Hematuria, Chest pain - Additional information Additional information: 20-year-old female presents to the emergency department with 18 months of chronic abdominal pain. She is awaiting a new referral to a new GI doctor. She has had endoscopies and found to have dyspepsia. No fevers. No chills. Denies any marijuana use. 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 HEENT: None Psych: Bipolar disorder Musculoskeletal: None Derm: None - Past Surgical History Past Surgical History: No General: Cholecystectomy Ortho: Rotator cuff repair - Present Medications Home Medications: Ambulatory Orders Medication Instructions Recorded Confirmed Amitriptyline [Elavil] 100 mg PO DAILY PM 07/26/19 04/03/20 Promethazine [Phenergan] 25 mg ORAL Q8HR PRN 07/26/19 04/03/20 Hydrocodone/Acetaminophen [[place] 1 each PO Q6H PRN #15 tablet 01/25/20 04/03/20 5-325 Tablet] Ondansetron Odt [Zofran] 4 mg TL Q6H PRN #10 tablet 01/25/20 04/03/20 HYDROcod/ACETAM 5/325 [[place] 5/325] 1 - 2 ea PO Q6H PRN #10 tablet 04/03/20 Ondansetron Odt [Zofran] 4 mg TL Q6H PRN #20 tablet 04/03/20 - Allergies Allergies/Adverse Reactions: Allergies Allergy/AdvReac Type Severity Reaction Status Date / Time naproxen Allergy Edema Verified 04/03/20 16:27 - Social History Does the pt smoke?: No Smoking Status: Never smoker Does the pt drink ETOH?: Yes Does the pt have substance abuse?: No - Immunizations Immunizations are current?: Yes - POLST Patient has POLST: No PD ED PE NORMAL - Vitals Vital signs reviewed: Yes - General General: Alert and oriented X 3, No acute distress - HEENT HEENT: Moist mucous membranes - Neck Neck: Supple, no meningeal sign - Cardiac Cardiac: RRR, Strong equal pulses - Respiratory Respiratory: No respiratory distress, Clear bilaterally - Abdomen Abdomen: Soft, Non tender, Non distended - Derm Derm: Warm and dry - Extremities Extremities: No edema - Neuro Neuro: Alert and oriented X 3 - Psych Psych: Normal mood, Normal affect Results - Vitals Vitals: Vital Signs - 24 hr 04/03/20 04/03/20 04/03/20 16:27 17:21 18:12 Temperature 37 C Heart Rate 98 104 H 97 Respiratory 18 16 18 Rate Blood Pressure 136/94 H 114/63 137/114 H O2 Saturation 100 100 100 Oxygen O2 Source Room air - Labs Labs: Laboratory Tests 04/03/20 04/03/20 04/03/20 16:48 16:48 18:05 WBC 5.3 RBC 4.77 Hgb 14.9 Hct 43.4 MCV 91.0 MCH 31.2 H MCHC 34.3 RDW 11.9 L Plt Count 241 MPV 9.4 Neut # (Auto) 3.1 Lymph # (Auto) 1.7 [place] # (Auto) 0.4 Eos # (Auto) 0.1 Baso # (Auto) 0.0 Absolute Nucleated RBC 0.00 Nucleated RBC % 0.0 Sodium 139 Potassium 3.6 Chloride 102 Carbon Dioxide 26 Anion Gap 11.0 BUN 7 Creatinine 0.7 Estimated GFR (MDRD) 106 Glucose 85 Calcium 9.1 Total Bilirubin 0.4 AST 16 ALT 20 Alkaline Phosphatase 62 Total Protein 7.4 Albumin 4.1 Globulin 3.3 Albumin/Globulin Ratio 1.2 Lipase 43 Urine Color YELLOW Urine Clarity CLEAR Urine pH 7.0 Ur Specific [place] 1.010 Urine Protein NEGATIVE Urine Glucose (UA) NEGATIVE Urine Ketones NEGATIVE Urine Occult Blood NEGATIVE Urine Nitrite NEGATIVE Urine Bilirubin NEGATIVE Urine Urobilinogen 0.2 (NORMAL) Ur Leukocyte Esterase NEGATIVE Ur Microscopic Review NOT INDICATED Urine Culture Comments NOT INDICATED Urine HCG, Qual NEGATIVE Urine Opiates Screen Ur Oxycodone Screen Urine Methadone Screen Ur Propoxyphene Screen Ur Barbiturates Screen Ur Tricyclics Screen Ur Phencyclidine Scrn Ur Amphetamine Screen U Methamphetamines Scrn U Benzodiazepines Scrn Urine Cocaine Screen U Cannabinoids Screen 04/03/20 18:05 WBC RBC Hgb Hct MCV MCH MCHC RDW Plt Count MPV Neut # (Auto) Lymph # (Auto) [place] # (Auto) Eos # (Auto) Baso # (Auto) Absolute Nucleated RBC Nucleated RBC % Sodium Potassium Chloride Carbon Dioxide Anion Gap BUN Creatinine Estimated GFR (MDRD) Glucose Calcium Total Bilirubin AST ALT Alkaline Phosphatase Total Protein Albumin Globulin Albumin/Globulin Ratio Lipase Urine Color Urine Clarity Urine pH Ur Specific [place] Urine Protein Urine Glucose (UA) Urine Ketones Urine Occult Blood Urine Nitrite Urine Bilirubin Urine Urobilinogen Ur Leukocyte Esterase Ur Microscopic Review Urine Culture Comments Urine HCG, Qual Urine Opiates Screen POSITIVE H Ur Oxycodone Screen NEGATIVE Urine Methadone Screen NEGATIVE Ur Propoxyphene Screen NEGATIVE Ur Barbiturates Screen NEGATIVE Ur Tricyclics Screen POSITIVE H Ur Phencyclidine Scrn NEGATIVE Ur Amphetamine Screen NEGATIVE U Methamphetamines Scrn NEGATIVE U Benzodiazepines Scrn NEGATIVE Urine Cocaine Screen NEGATIVE U Cannabinoids Screen NEGATIVE - Rads (name of study) CT abdomen pelvis Radiology: Prelim report reviewed, EMP read contemporaneously, See rad report (no acute abnormality, Possible mild colon wall thickening) PD MEDICAL DECISION MAKING - ED course Complexity details: reviewed results, re-evaluated patient, considered differential, d/w patient ED course: Patient with ongoing abdominal pain of unclear etiology. Pain is well controlled here. She is out of her Zofran for home. Given IV fluids. Encouraged her to follow-up with her doctor this week as scheduled. Patient is well-appearing, nontoxic. Afebrile. Abdomen is soft, nontender nondistended on serial exam. Patient counseled regarding signs and symptoms for which I believe and urgent re-evaluation would be necessary. Patient with good understanding of and agreement to plan and is comfortable going home at this time This document was made in part using voice recognition software. While efforts are made to proofread this document, sound alike and grammatical errors may occur. Departure - Departure Disposition: 01 Home, Self Care Clinical Impression: Abdominal pain Qualifiers: Abdominal location: upper abdomen, unspecified Qualified Code(s): R10.10 - Upper abdominal pain, unspecified Condition: Good Instructions: ED Abdominal Pain Unkn Cause Follow-Up: KYM LI MD [Primary Care Provider] - Within 1 week Prescriptions: HYDROcod/ACETAM 5/325 [[place] 5/325] 1 - 2 ea PO Q6H PRN #10 tablet PRN Reason: Pain Ondansetron Odt [Zofran] 4 mg TL Q6H PRN #20 tablet PRN Reason: Nausea / Vomiting Comments: The cause of your symptoms is unclear today. Follow-up with your doctor for further care. Return if you worsen. Do not drink alcohol or drive while on narcotic pain medicine. Note that many narcotic pain relievers also contain tylenol/acetaminophen. Please ensure that your total dose of acetaminophen from all sources does not exceed 3 grams (3000mg) per day. You may constipated on this medication, take a stool softener such as "Colace" twice a day while you are on it. Also recommend a [id number] laxative such as senna or MiraLAX any day that you do not have a bowel movement. If you received narcotic pain medication in the emergency department, do not drive or operate machinery for the next 24 hours.
[2020-04-03] MEDS ORDERED: IOVERSOL 320 100 ML VIAL IVP ONE ×2 (16:56→19:41)
[2020-04-03] MEDS ORDERED: MORPHINE 2 MG/ML CARPUJECT IVP STA ×2 (17:00→18:42)
[2020-04-03] MEDS ORDERED: PANTOPRAZOLE 40 MG VIAL IVP STA (17:00)
[2020-04-03] MEDS ORDERED: ONDANSETRON 4 MG/2 ML VIAL IVP STA (17:00)
[2020-04-03] MEDS ORDERED: SODIUM CHLORIDE 0.9% 1,000 ML IV STA ×2 (17:01)
[2020-04-03 17:04] LABS: BASOPHILS % (AUTO) 0.8 %; EOSINOPHILS # (AUTO) 0.1 10^3/uL (0.0-0.7); EOSINOPHILS % (AUTO) 1.9 %; HGB - HEMOGLOBIN 14.9 g/dL (12.0-16.0); LYMPHOCYTES # (AUTO) 1.7 10^3/uL (1.5-3.5); LYMPHOCYTES % (AUTO) 31.7 %; MEAN CORPUSCULAR HEMOGLOBIN 31.2 pg (27.0-31.0); MEAN CORPUSCULAR HGB CONC 34.3 g/dL (32.0-36.0); MEAN PLATELET VOLUME 9.4 fL (7.9-10.8); MONOCYTES # (AUTO) 0.4 10^3/uL (0.0-1.0); MONOCYTES % (AUTO) 6.8 %; NEUTROPHILS # (AUTO) 3.1 10^3/uL (1.5-6.6); NEUTROPHILS % (AUTO) 58.4 %; PLT - PLATELET COUNT 241 10^3/uL (130-450); RED BLOOD COUNT 4.77 10^6/uL (4.20-5.40); RED CELL DISTRIBUTION WIDTH 11.9 % (12.0-15.0); WHITE BLOOD COUNT 5.3 x10^3/uL (4.8-10.8)
[2020-04-03 17:18] LABS: ALBUMIN 4.1 g/dL (3.2-5.5); ALBUMIN/GLOBULIN RATIO 1.2 (1.0-2.2); BILIRUBIN,TOTAL 0.4 mg/dL (0.2-1.0); CALCIUM 9.1 mg/dL (8.5-10.3); CREATININE 0.7 mg/dL (0.4-1.0); TOTAL PROTEIN 7.4 g/dL (6.7-8.2)
[2020-04-03 18:19] LABS: BILIRUBIN,URINE NEGATIVE (NEGATIVE); GLUCOSE, URINE (UA) NEGATIVE (NEGATIVE); KETONES,URINE (UA) NEGATIVE (NEGATIVE); LEUKOCYTE ESTERASE, URINE NEGATIVE (NEGATIVE); NITRITE,URINE NEGATIVE (NEGATIVE); OCCULT BLOOD,URINE NEGATIVE (NEGATIVE); PROTEIN,URINE NEGATIVE (NEGATIVE); UROBILINOGEN,URINE 0.2 (NORMAL) E.U./dL (NORMAL)
[2020-04-03 18:23] LABS: CLARITY,URINE CLEAR (CLEAR); HCG UR QUAL NEGATIVE
[2020-04-03] MEDS ORDERED: SUCRALFATE 1 GM/10 ML UDC PO STA (18:42)
[2020-04-03] MEDS ORDERED: MAG HYDROX/AL HYDROX/SIMETH 30 ML UDC PO STA (18:42)
--- NOTE | 2020-04-03 18:42 | CT Report ---
PROCEDURE: Abdomen/Pelvis W INDICATIONS: abd pain, vomiting CONTRAST: IV CONTRAST: Optiray 320 ml: 100 PO CONTRAST: *NO PO CONTRAST TECHNIQUE: After the administration of intravenous contrast, 5 mm thick sections acquired from the diaphragms to the symphysis. 5 mm thick coronal and sagittal reformats were acquired. For radiation dose reducti on, the following was used: automated exposure control, adjustment of mA and/or kV according to alice ent size. COMPARISON: None. FINDINGS: Image quality: Excellent. ABDOMEN: Lung bases: Lung bases are clear. Heart size is normal. Solid organs: Liver and spleen are normal in size and enhancement. Gallbladder is surgically absent Biliary system is non dilated. Pancreas enhances normally. No adrenal nodules. Kidneys demonstra te normal size and enhancement, without hydronephrosis. Peritoneum and bowel: Mild bowel wall thickening versus underdistention is seen in the descending and sigmoid colon. No signs of bowel obstruction. No free fluid or air. Nodes and vessels: No retroperitoneal or mesenteric adenopathy by size criteria. Aorta and inferior vena cava are normal in size. Miscellaneous: No ventral hernias. PELVIS: Genitourinary: Bladder wall thickness is normal. The uterus appears normal. A [address] ovarian [address] is most likely physiologic. The left ovary appears normal. Miscellaneous: No inguinal hernias or adenopathy. Bones: No suspicious bony lesions. No vertebral body compression fractures. IMPRESSION: 1. Areas of mild bowel wall thickening in the descending and sigmoid colon may be related to underdi stention versus a mild colitis. 2. Status post cholecystectomy. Reviewed by: Herman Claros MD on 04/03/2020 5:41 PM [facility] Approved by: Herman Claros MD on 04/03/2020 5:41 PM [facility] Station ID: [id number]
[2020-04-03 18:57] LABS: MUDS CUTOFF CONCENTRATIONS CUTOFF CONC BELOW:
[2020-04-03 19:15] LABS: COCAINE SCREEN URINE NEGATIVE (NEGATIVE); METHAMPHETAMINES SCREEN, URINE NEGATIVE (NEGATIVE)
[2020-04-03 19:16] LABS: AMPHETAMINE SCREEN,URINE NEGATIVE (NEGATIVE); BENZODIAZEPINES SCREEN, URINE NEGATIVE (NEGATIVE); METHADONE SCREEN, URINE NEGATIVE (NEGATIVE); OPIATE SCREEN, URINE POSITIVE (NEGATIVE); OXYCODONE SCREEN, URINE NEGATIVE (NEGATIVE); PROPOXYPHENE SCREEN, URINE NEGATIVE (NEGATIVE); TRICYCLIC ANTIDEPRESSANT,URINE POSITIVE (NEGATIVE)
[2020-04-03 19:55] VITALS: BP 100/56
== END 2020-04-03 19:55 | disposition home or self-care (01) ==
LOC: ED 16:17
DX: R10.13 Epigastric pain (principal); G89.29 Other chronic pain; R11.2 Nausea with vomiting, unspecified; Z90.49 Acquired absence of other specified parts of digestive tract
CPT/HCPCS: 36415; 74177; 80053; 80306; 81003; 81025; 83690; 85025; 96361; 96374; 96375; 96376; 99284; A9270; Q9967; 81001; 87086

== ENCOUNTER 2020-04-23 21:17 | Emergency (ER) | payer OTHER ==
[2020-04-23 21:35] LABS: BILIRUBIN,URINE NEGATIVE (NEGATIVE); GLUCOSE, URINE (UA) NEGATIVE (NEGATIVE); KETONES,URINE (UA) NEGATIVE (NEGATIVE); LEUKOCYTE ESTERASE, URINE NEGATIVE (NEGATIVE); NITRITE,URINE NEGATIVE (NEGATIVE); OCCULT BLOOD,URINE NEGATIVE (NEGATIVE); PH,URINE 6.5 PH (5.0-7.5); PROTEIN,URINE NEGATIVE (NEGATIVE); UROBILINOGEN,URINE 0.2 (NORMAL) E.U./dL (NORMAL)
[2020-04-23 21:38] LABS: CLARITY,URINE CLEAR (CLEAR); HCG UR QUAL NEGATIVE
[2020-04-23 21:41] LABS: BASOPHILS % (AUTO) 0.6 %; EOSINOPHILS # (AUTO) 0.2 10^3/uL (0.0-0.7); HGB - HEMOGLOBIN 15.6 g/dL (12.0-16.0); LYMPHOCYTES # (AUTO) 2.8 10^3/uL (1.5-3.5); LYMPHOCYTES % (AUTO) 42.1 %; MEAN CORPUSCULAR HEMOGLOBIN 32.2 pg (27.0-31.0); MEAN CORPUSCULAR HGB CONC 34.7 g/dL (32.0-36.0); MEAN CORPUSCULAR VOLUME 92.8 fL (81.0-99.0); MEAN PLATELET VOLUME 9.6 fL (7.9-10.8); MONOCYTES # (AUTO) 0.5 10^3/uL (0.0-1.0); MONOCYTES % (AUTO) 7.8 %; NEUTROPHILS # (AUTO) 3.1 10^3/uL (1.5-6.6); NEUTROPHILS % (AUTO) 46.3 %; PLT - PLATELET COUNT 240 10^3/uL (130-450); RED BLOOD COUNT 4.84 10^6/uL (4.20-5.40); RED CELL DISTRIBUTION WIDTH 12.2 % (12.0-15.0); WHITE BLOOD COUNT 6.6 x10^3/uL (4.8-10.8)
[2020-04-23 21:52] LABS: ALBUMIN 4.4 g/dL (3.2-5.5); ALBUMIN/GLOBULIN RATIO 1.4 (1.0-2.2); BILIRUBIN,TOTAL 0.6 mg/dL (0.2-1.0); CALCIUM 9.2 mg/dL (8.5-10.3); CREATININE 0.7 mg/dL (0.4-1.0); TOTAL PROTEIN 7.5 g/dL (6.7-8.2)
[2020-04-23] MEDS ORDERED: ONDANSETRON ODT 4 MG TABLET TL STA (21:56)
[2020-04-23] MEDS ORDERED: MAGIC MOUTHWASH 120 ML BOTTLE PO STA (21:56)
[2020-04-23] MEDS ORDERED: diphenhydrAMINE ELIXIR 25 MG/10 ML UDC PO STA (22:05)
[2020-04-23] MEDS ORDERED: LIDOCAINE VISCOUS 2% 15 ML UDC MM STA (22:06)
[2020-04-23] MEDS ORDERED: MAG HYDROX/AL HYDROX/SIMETH 30 ML UDC PO STA (22:06)
--- NOTE | 2020-04-23 22:41 | ED Physician Documentation ---
PD HPI ABD PAIN - Stated complaint Stated Complaint: ABD PX,NAUSEA - Chief complaint Chief Complaint: Abd Pain - Additional information Additional information: 20yF with pmh dyspepsia diagnosed on endoscopy this past year, psh cholecystectomy p/w epigastric pain X3 hours, gradual onset, constant, moderate severity, burning, radiating upward, a/w n/v nbnb X 3 and inability to take her home zofran meds. worse with [place]. pt endorses temp 101 far, 4 hours ago taken by ear thermometer. she has had no antipyretics today and denies chills. denies urinary sx, diarrhea, travel or covid exposure. patient is currently menstruating. Review of Systems Ten Systems: 10 systems reviewed and negative Constitutional: reports: Fever. 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 HEENT: None Psych: Bipolar disorder Musculoskeletal: None Derm: None - Past Surgical History Past Surgical History: No General: Cholecystectomy Ortho: Rotator cuff repair - Present Medications Home Medications: Ambulatory Orders Medication Instructions Recorded Confirmed Amitriptyline [Elavil] 100 mg PO DAILY PM 07/26/19 04/03/20 Promethazine [Phenergan] 25 mg ORAL Q8HR PRN 07/26/19 04/03/20 Hydrocodone/Acetaminophen [[place] 1 each PO Q6H PRN #15 tablet 01/25/20 04/03/20 5-325 Tablet] Ondansetron Odt [Zofran] 4 mg TL Q6H PRN #10 tablet 01/25/20 04/03/20 HYDROcod/ACETAM 5/325 [[place] 5/325] 1 - 2 ea PO Q6H PRN #10 tablet 04/03/20 Ondansetron Odt [Zofran] 4 mg TL Q6H PRN #20 tablet 04/03/20 - Allergies Allergies/Adverse Reactions: Allergies Allergy/AdvReac Type Severity Reaction Status Date / Time naproxen Allergy Edema Verified 04/03/20 16:27 - Social History Does the pt smoke?: No Smoking Status: Never smoker Does the pt drink ETOH?: Yes Does the pt have substance abuse?: No - Immunizations Immunizations are current?: Yes - POLST Patient has POLST: No PD ED PE NORMAL - Vitals Vital signs reviewed: Yes - General General: Alert and oriented X 3 - HEENT HEENT: Atraumatic, PERRL, EOMI - Neck Neck: Supple, no meningeal sign - Cardiac Cardiac: RRR - Respiratory Respiratory: No respiratory distress, Clear bilaterally - Abdomen Abdomen: Other (epigastric discomfort to palpation. otherwise ntnd.) - Female Female : Deferred - Rectal Rectal: Deferred - Back Back: No CVA TTP - Derm Derm: Normal color - Extremities Extremities: No deformity, No edema - Neuro Neuro: Alert and oriented X 3 - Psych Psych: Normal mood, Normal affect Results - Vitals Vitals: Vital Signs - 24 hr 04/23/20 21:21 Temperature 36.6 C Heart Rate 105 H Respiratory 16 Rate Blood Pressure 131/87 H O2 Saturation 99 Oxygen O2 Source Room air - Labs Labs: Laboratory Tests 04/23/20 04/23/20 04/23/20 21:30 21:33 21:33 WBC 6.6 RBC 4.84 Hgb 15.6 Hct 44.9 MCV 92.8 MCH 32.2 H MCHC 34.7 RDW 12.2 Plt Count 240 MPV 9.6 Neut # (Auto) 3.1 Lymph # (Auto) 2.8 [place] # (Auto) 0.5 Eos # (Auto) 0.2 Baso # (Auto) 0.0 Absolute Nucleated RBC 0.00 Nucleated RBC % 0.0 Sodium 140 Potassium 3.5 Chloride 104 Carbon Dioxide 26 Anion Gap 10.0 BUN 8 Creatinine 0.7 Estimated GFR (MDRD) 106 Glucose 94 Calcium 9.2 Total Bilirubin 0.6 AST 17 ALT 18 Alkaline Phosphatase 77 Total Protein 7.5 Albumin 4.4 Globulin 3.1 Albumin/Globulin Ratio 1.4 Lipase 35 Urine Color YELLOW Urine Clarity CLEAR Urine pH 6.5 Ur Specific [place] 1.020 Urine Protein NEGATIVE Urine Glucose (UA) NEGATIVE Urine Ketones NEGATIVE Urine Occult Blood NEGATIVE Urine Nitrite NEGATIVE Urine Bilirubin NEGATIVE Urine Urobilinogen 0.2 (NORMAL) Ur Leukocyte Esterase NEGATIVE Ur Microscopic Review NOT INDICATED Urine Culture Comments NOT INDICATED Urine HCG, Qual NEGATIVE PD MEDICAL DECISION MAKING - ED course Complexity details: reviewed results, re-evaluated patient, d/w patient ED course: 28-year-old woman with chronic dyspepsia presents with epigastric abdominal pain she states is consistent with her usual dyspeptic episodes, milder than usual this evening. Her pain and nausea are improved with oral meds and she is tolerating p.o. Strict return precautions given. Patient will follow up with her GI on May 03. Departure - Departure Disposition: Home, Self Care Clinical Impression: Abdominal pain, Nausea Condition: Good Instructions: Abdominal Pain Comments: You were seen in the emergency department for abdominal pain. Your lab work and urine was normal. You are not . You were given Magic mouthwash, a mixture of medicines containing Maalox. This is an [id number] medication that may help you in future. You can get it at the pharmacy. You can also alternatively try Gaviscon for your stomach. Return to the ED for any new or worsening symptoms. Follow-up with your GI on May 03. Forms: Activity restrictions
[2020-04-23 22:56] VITALS: BP 131/73
== END 2020-04-23 22:54 | disposition home or self-care (01) ==
LOC: ED 21:17
DX: R10.13 Epigastric pain (principal); R11.2 Nausea with vomiting, unspecified; Z90.49 Acquired absence of other specified parts of digestive tract
CPT/HCPCS: 36415; 80053; 81003; 81025; 83690; 85025; 99283; 99284; A9270; Q0162; 81001; 87086

== ENCOUNTER 2020-05-26 13:16 | Emergency (ER) | payer OTHER ==
--- NOTE | 2020-05-26 14:36 | XRAY Report ---
PROCEDURE: Hand 3 View RT INDICATIONS: Trauma TECHNIQUE: 3 views of the hand(s) acquired. COMPARISON: None FINDINGS: Bones: No fractures or dislocations. No suspicious bony lesions. No bony erosive changes are seen. Soft tissues: No suspicious soft tissue calcifications. Mild soft tissue swelling surrounding secon d digit is noted. IMPRESSION: No right hand fracture or dislocation. No bony erosive changes. Mild the second digit soft tissue swe lling. Reviewed by: Fly Olsen MD on 05/26/2020 2:35 PM PST Approved by: Fly Olsen MD on 05/26/2020 2:35 PM PST Station ID: [id number]
--- NOTE | 2020-05-26 15:14 | ED Physician Documentation ---
PD HPI UPPER EXT INJURY - Stated complaint Stated Complaint: RT FINGER PX - Chief complaint Chief Complaint: General - History obtained from History obtained from: Patient - History of Present Illness Location: Finger (right index finger) Type of injury: No: Fall, Twist Timing - onset: Yesterday Timing - details: Gradual onset, Still present (worse today, with increased swelling and tight feeling.) Worsened by: Moving, Palpating Associated symptoms: Swelling. No: Weakness, Numbness, Discolored (she shows picture of focal redness and swelling at proximal corner of nailbed from about 10 days ago that lasted 2-3 days then went away. No drainage, but looks like it was a paronychia by her picture. 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 HEENT: None Psych: Bipolar disorder Musculoskeletal: None Derm: None - Past Surgical History Past Surgical History: No General: Cholecystectomy Ortho: Rotator cuff repair - Present Medications Home Medications: Ambulatory Orders Medication Instructions Recorded Confirmed Amitriptyline [Elavil] 100 mg PO DAILY PM 07/26/19 04/03/20 Promethazine [Phenergan] 25 mg ORAL Q8HR PRN 07/26/19 04/03/20 Hydrocodone/Acetaminophen [[place] 1 each PO Q6H PRN #15 tablet 01/25/20 04/03/20 5-325 Tablet] Ondansetron Odt [Zofran] 4 mg TL Q6H PRN #10 tablet 01/25/20 04/03/20 HYDROcod/ACETAM 5/325 [[place] 5/325] 1 - 2 ea PO Q6H PRN #10 tablet 04/03/20 Ondansetron Odt [Zofran] 4 mg TL Q6H PRN #20 tablet 04/03/20 HYDROcod/ACETAM 5/325 [[place] 5/325] 1 ea PO Q6H PRN #15 tablet 05/26/20 Sulfamethox/Trimeth 800/160 1 each PO BID #14 tablet 05/26/20 [Bactrim Ds 800/160] - Allergies Allergies/Adverse Reactions: Allergies Allergy/AdvReac Type Severity Reaction Status Date / Time naproxen Allergy Edema Verified 04/03/20 16:27 - Social History Does the pt smoke?: No Smoking Status: Never smoker Does the pt drink ETOH?: Yes Does the pt have substance abuse?: No - Immunizations Immunizations are current?: Yes - POLST Patient has POLST: No PD ED PE NORMAL - Vitals Vital signs reviewed: Yes - General General: Alert and oriented X 3, No acute distress, Well developed/nourished - Derm Derm: Normal color, Warm and dry - Extremities Extremities: Other (swelling of distal finger at middle and distal phalanx, mainly volar aspect. No redness nor sores. No tenderness proximal finger nor hand. ROM of the finger is stiff but no pain along tendon line with movement. ) - Neuro Neuro: No motor deficit (stiff flex/ext due to swelling, but able to do it. ), No sensory deficit Results - Vitals Vitals: Vital Signs - 24 hr 05/26/20 05/26/20 13:38 16:00 Temperature 36.9 C Heart Rate 100 100 Respiratory 19 14 Rate Blood Pressure 140/99 H 116/79 O2 Saturation 100 99 Oxygen O2 Source Room air - Rads (name of study) finger xray Radiology: Prelim report reviewed (no fractures. No cortical lesions. ), See rad report PD MEDICAL DECISION MAKING - ED course Complexity details: reviewed results, considered differential, d/w patient Departure - Departure Disposition: Home, Self Care Clinical Impression: Paronychia of finger of right hand Condition: Stable Record reviewed to determine appropriate education?: Yes Instructions: ED Fingernail Infec Follow-Up: KYM LI MD [Primary Care Provider] - Prescriptions: Sulfamethox/Trimeth 800/160 [Bactrim Ds 800/160] 1 each PO BID #14 tablet HYDROcod/ACETAM 5/325 [[place] 5/325] 1 ea PO Q6H PRN #15 tablet PRN Reason: Pain Comments: Warm moist soaks for the finger 3-4 times daily to improve blood flow and help fight off the apparent infection. I think this is a recurrence of the recent fingernail base infection, only at a deeper level. The xray is normal, so not apparently involving the bone. Use the finger splint rest of the time to help decrease range of motion. Elevated as well. These will help decrease swelling. Bactrim antibiotic twice daily as prescribed for the infection. Tylenol every 4-6 hours if needed for pain or hydrocodone if needed for worse pain. Do not take any anti-inflammatories since you are allergic to naproxen and you have your stomach irritation. This should be able to get better without NSAIDs per se. Discharge Date/Time: 05/26/20 16:09
[2020-05-26] MEDS ORDERED: SULFAMETH/TRIMETH DS 800/160 MG TABLET PO STA (15:32)
[2020-05-26] MEDS ORDERED: ACETAMINOPHEN 325 MG TABLET PO STA (15:33)
[2020-05-26] MEDS ORDERED: HYDROcod/ACETAM 5/325 MG TABLET PO STA (15:33)
[2020-05-26 16:09] VITALS: BP 116/79
== END 2020-05-26 16:09 | disposition home or self-care (01) ==
LOC: ED 13:16
DX: L03.011 Cellulitis of right finger (principal)
CPT/HCPCS: 73130; 99283; A9270

== ENCOUNTER 2020-05-29 11:46 | Emergency (ER) | payer OTHER ==
[2020-05-29] MEDS ORDERED: oxyCODONE 5 MG TABLET PO STA (12:04)
--- NOTE | 2020-05-29 12:08 | ED Physician Documentation ---
PD HPI WOUND RECHECK - Stated complaint Stated Complaint: RT HAND SWOLLEN, PX - Chief complaint Chief Complaint: Wound - Histroy obtained from History obtained from: Patient - Additional information Additional information: For about 4 days after April 17 she had a lesion of the dorsal surface of the right second finger. She shows me a picture pot, could definitely be paronychia. It went away on its own but a few nights ago developed pain again of the right second finger. She was seen here and started on doxycycline and hydrocodone presuming an infection. She is got worse since then and the pain is now in the third finger as well. 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 HEENT: None Psych: Bipolar disorder Musculoskeletal: None Derm: None - Past Surgical History Past Surgical History: No General: Cholecystectomy Ortho: Rotator cuff repair - Present Medications Home Medications: Ambulatory Orders Medication Instructions Recorded Confirmed Amitriptyline [Elavil] 100 mg PO DAILY PM 07/26/19 04/03/20 Promethazine [Phenergan] 25 mg ORAL Q8HR PRN 07/26/19 04/03/20 Hydrocodone/Acetaminophen [[place] 1 each PO Q6H PRN #15 tablet 01/25/20 04/03/20 5-325 Tablet] Ondansetron Odt [Zofran] 4 mg TL Q6H PRN #10 tablet 01/25/20 04/03/20 HYDROcod/ACETAM 5/325 [[place] 5/325] 1 - 2 ea PO Q6H PRN #10 tablet 04/03/20 Ondansetron Odt [Zofran] 4 mg TL Q6H PRN #20 tablet 04/03/20 HYDROcod/ACETAM 5/325 [[place] 5/325] 1 ea PO Q6H PRN #15 tablet 05/26/20 Sulfamethox/Trimeth 800/160 1 each PO BID #14 tablet 05/26/20 [Bactrim Ds 800/160] NIFEdipine [Procardia Xl] 30 mg PO DAILY #30 tablet 01/25/21 Oxycodone HCl/Acetaminophen 1 - 2 each PO Q6H PRN #7 tablet 05/29/20 [Percocet 5-325 mg Tablet] - Allergies Allergies/Adverse Reactions: Allergies Allergy/AdvReac Type Severity Reaction Status Date / Time naproxen Allergy Edema Verified 05/29/20 11:56 - Social History Does the pt smoke?: Yes Smoking Status: Current some day smoker Does the pt drink ETOH?: Yes Does the pt have substance abuse?: No - Immunizations Immunizations are current?: Yes - POLST Patient has POLST: No PD ED PE NORMAL - Vitals Vital signs reviewed: Yes - General General: Alert and oriented X 3, No acute distress - Extremities Extremities: Other (She has redness without swelling around the proximal nail plate of the second finger and less so of the third finger. Full and painless range of motion. Capillary refill is normal and slightly hyperemic at the tips.) - Neuro Neuro: Alert and oriented X 3, Normal speech Results - Vitals Vitals: Vital Signs - 24 hr 05/29/20 11:53 Temperature 36.6 C Heart Rate 130 H Respiratory 20 Rate Blood Pressure 153/99 H O2 Saturation 100 Oxygen O2 Source Room air - Labs Labs: Laboratory Tests 05/29/20 05/29/20 05/29/20 12:18 12:18 12:18 WBC 5.2 RBC 4.48 Hgb 14.2 Hct 41.1 MCV 91.7 MCH 31.7 H MCHC 34.5 RDW 11.9 L Plt Count 231 MPV 9.4 Neut # (Auto) 3.4 Lymph # (Auto) 1.5 [place] # (Auto) 0.3 Eos # (Auto) 0.0 Baso # (Auto) 0.0 Absolute Nucleated RBC 0.00 Nucleated RBC % 0.0 ESR 7 Sodium 136 Potassium 3.5 Chloride 103 Carbon Dioxide 25 Anion Gap 8.0 BUN 8 Creatinine 0.7 Estimated GFR (MDRD) 106 Glucose 93 Calcium 9.1 C-Reactive Protein < 1.0 PD MEDICAL DECISION MAKING - ED course ED course: Pain and swelling of the tips of second and third fingers in this young woman who says she does not smoke much but smells of tobacco currently. She has decent cap refill, there is no evidence of infection. Pain gets worse with Agapito testing, but Agapito testing is normal. This is consistent with some sort of vasculitis I think. Buerger's disease is considered. We will check some labs and trial nifedipine. Departure - Departure Disposition: 01 Home, Self Care Clinical Impression: Finger pain Qualifiers: Laterality: right Qualified Code(s): M79.644 - Pain in right finger(s) Condition: Good Record reviewed to determine appropriate education?: Yes Prescriptions: Oxycodone HCl/Acetaminophen [Percocet 5-325 mg Tablet] 1 - 2 each PO Q6H PRN #7 tablet PRN Reason: pain NIFEdipine [Procardia Xl] 30 mg PO DAILY #30 tablet Comments: The cause of your finger pain is not completely clear, to me it looks most like a vasculitis. Your inflammatory markers are normal, specifically your white blood cell count is 5.2, ESR is 7, CRP less than 1, and x-ray of your hand is normal. This could be something called Buerger's disease, that is related to vasoconstriction from smoking. It is imperative to completely stop smoking while this gets straightened out. Talk with your doctor tomorrow. Return if worsening.
[2020-05-29] MEDS ORDERED: NIFEdipine 10 MG CAPSULE PO STA (12:17)
[2020-05-29 12:25] LABS: BASOPHILS % (AUTO) 0.4 %; EOSINOPHILS % (AUTO) 0.8 %; HGB - HEMOGLOBIN 14.2 g/dL (12.0-16.0); LYMPHOCYTES # (AUTO) 1.5 10^3/uL (1.5-3.5); LYMPHOCYTES % (AUTO) 28.1 %; MEAN CORPUSCULAR HEMOGLOBIN 31.7 pg (27.0-31.0); MEAN CORPUSCULAR HGB CONC 34.5 g/dL (32.0-36.0); MEAN CORPUSCULAR VOLUME 91.7 fL (81.0-99.0); MEAN PLATELET VOLUME 9.4 fL (7.9-10.8); MONOCYTES # (AUTO) 0.3 10^3/uL (0.0-1.0); MONOCYTES % (AUTO) 5.9 %; NEUTROPHILS # (AUTO) 3.4 10^3/uL (1.5-6.6); NEUTROPHILS % (AUTO) 64.2 %; PLT - PLATELET COUNT 231 10^3/uL (130-450); RED BLOOD COUNT 4.48 10^6/uL (4.20-5.40); RED CELL DISTRIBUTION WIDTH 11.9 % (12.0-15.0); WHITE BLOOD COUNT 5.2 x10^3/uL (4.8-10.8)
--- NOTE | 2020-05-29 12:27 | XRAY Report ---
PROCEDURE: Hand 3 View RT INDICATIONS: hand pain TECHNIQUE: 3 views of the hand(s) acquired. COMPARISON: 12/19/2019 at 05/26/2019 FINDINGS: Bones: No fractures or dislocations. No suspicious bony lesions. No bony erosive changes. Soft tissues: No suspicious soft tissue calcifications. Mild second digit soft tissue swelling is a gain seen without subcutaneous emphysema. IMPRESSION: No gross right hand fracture or dislocation. Very mild second digit soft tissue swelling. No abnormal soft tissue calcifications. Reviewed by: Fly Olsen MD on 05/29/2020 12:26 PM PST Approved by: Fly Olsen MD on 05/29/2020 12:26 PM PST Station ID: [id number]
[2020-05-29 12:42] LABS: BUN - BLOOD UREA NITROGEN 8 mg/dL (6-20); CALCIUM 9.1 mg/dL (8.5-10.3); CARBON DIOXIDE - CO2 25 mmol/L (21-32); CHLORIDE 103 mmol/L (101-111); CREATININE 0.7 mg/dL (0.4-1.0); GLUCOSE 93 mg/dL (70-100)
[2020-05-29 13:07] LABS: CRP - C-REACTIVE PROTEIN < 1.0 mg/dL (0-1.0)
[2020-05-29 13:22] VITALS: BP 137/68
== END 2020-05-29 13:22 | disposition home or self-care (01) ==
LOC: ED 11:46
DX: M79.644 Pain in right finger(s) (principal); F17.200 Nicotine dependence, unspecified, uncomplicated
CPT/HCPCS: 36415; 73130; 80048; 85025; 85651; 86140; 99283; 99284; A9270

== ENCOUNTER 2020-06-04 21:00 | Emergency (ER) | payer OTHER ==
[2020-06-04] MEDS ORDERED: oxyCODONE 5 MG TABLET PO STA (21:35)
--- NOTE | 2020-06-04 21:38 | ED Physician Documentation ---
History of Present Illness - Stated complaint Stated Complaint: RT HAND PX - Chief complaint Chief Complaint: Ext Problem - Additonal information Additional information: 20-year-old female return to the emergency department for evaluation of right index finger pain. She has been seen twice recently for this. The most lab recent time was 05/29/2020. At that time the exam and history was somewhat worrisome for Buerger's phenomenon. Patient did have screening labs checked and they were essentially normal including her CRP however she was started on nifedipine and she followed up with her primary care doctor. When she saw him 2 days later he did not feel that she had Buerger's and advised her to stop the nifedipine but did refer her to a vascular surgeon. She reports that today the finger hurts more than it has and she has developed an area of bruising between the PIP and DIP on the radial side of the finger. She is scheduled to see a vascular surgeon in follow-up at [facility] on 06/09/2020 Review of Systems Constitutional: denies: Fever, Chills Eyes: reports: Reviewed and negative Ears: reports: Reviewed and negative Nose: reports: Reviewed and negative Throat: reports: Reviewed and negative Cardiac: reports: Reviewed and negative Respiratory: reports: Reviewed and negative GI: reports: Reviewed and negative : reports: Reviewed and negative Skin: reports: Lesions, Reviewed and negative (right index finger) Musculoskeletal: reports: Joint pain (right index finger) PD PAST MEDICAL HISTORY - Past Medical History Cardiovascular: None Respiratory: None Neuro: Headaches, Migraines Endocrine/Autoimmune: Other GI: GERD, 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 HEENT: None Psych: Bipolar disorder Musculoskeletal: None Derm: None - Past Surgical History Past Surgical History: No General: Cholecystectomy Ortho: Rotator cuff repair - Present Medications Home Medications: Ambulatory Orders Medication Instructions Recorded Confirmed Amitriptyline [Elavil] 100 mg PO DAILY PM 07/26/19 06/04/20 Promethazine [Phenergan] 25 mg ORAL Q8HR PRN 07/26/19 06/04/20 Ondansetron Odt [Zofran] 4 mg TL Q6H PRN #10 tablet 01/25/20 06/04/20 Oxycodone HCl/Acetaminophen 1 each PO BID #10 tablet 06/04/20 [Percocet 5-325 mg Tablet] Rizatriptan Benzoate [Maxalt] 10 mg PO DAILY 06/04/20 06/04/20 Sumatriptan Succinate [Imitrex] 100 mg PO DAILY 06/04/20 06/04/20 - Allergies Allergies/Adverse Reactions: Allergies Allergy/AdvReac Type Severity Reaction Status Date / Time naproxen Allergy Edema Verified 05/29/20 11:56 - Social History Does the pt smoke?: Yes Smoking Status: Former smoker Does the pt drink ETOH?: Yes Does the pt have substance abuse?: No - Immunizations Immunizations are current?: Yes - POLST Patient has POLST: No PD ED PE EXPANDED - Extremities Extremities: Right finger(s) (Mild swelling of the right index finger with a linear bruise between PIP and DIP joint radial side. Initial exam of the finger is cool to touch but with brisk cap refill. 2+ radial and ulnar pulses. Approximately 5 minutes later the fingers reexamined and is very warm to touch with decreased pain), Other (Generalized movement flexion extension of all digits is preserved. Pulse oximetry on right index finger is 99%) Results - Vitals Vitals: Vital Signs - 24 hr 06/04/20 21:02 Temperature 36.8 C Heart Rate 117 H Respiratory 18 Rate Blood Pressure 133/85 H O2 Saturation 100 Oxygen O2 Source Room air PD MEDICAL DECISION MAKING - ED course Complexity details: reviewed old records, re-evaluated patient, considered differential, d/w patient ED course: This is a well-appearing 20-year-old female that presents the emergency department with worsening right index finger pain. On exam initially she presented with a very cool digit but about 5 minutes later it had warmed up and was less painful to touch. This is most consistent with a Raynaud's phenomenon. She had been advised to begin taking nifedipine due to concern that she may have Buerger's disease though her initial labs were unremarkable. However her primary care doctor advised her to stop taking the nifedipine until she saw a vascular surgeon. In review of up-to-date it does appear that Buerger's disease that presents with a Raynaud's phenomenon is best treated by calcium channel blockers. I have advised the patient to resume taking the nifedipine until she is seen by her surgeon. Clinically the finger does not appear infected and will defer any further antibiotics. She has requested additional pain medication and percocet was ordered as well as additional time off work. Advised her to have her not smoke around her. She smells heavily of tobacco, but insists that Departure - Departure Disposition: Home, Self Care Clinical Impression: Finger pain, right Condition: Stable Record reviewed to determine appropriate education?: Yes Prescriptions: Oxycodone HCl/Acetaminophen [Percocet 5-325 mg Tablet] 1 each PO BID #10 tablet Comments: Izzy I think it is important that you continue to resume taking the nifedipine. This will help keep the blood vessels in your finger open. Always try and keep your fingers warm as well. Avoid going out in the cold without gloves. Do not miss the follow-up appointment with your vascular surgeon on Friday. Return to the emergency department for worsening symptoms.
[2020-06-04 21:57] VITALS: BP 124/74
== END 2020-06-04 21:57 | disposition home or self-care (01) ==
LOC: ED 21:00
DX: M79.644 Pain in right finger(s) (principal); Z87.891 Personal history of nicotine dependence
CPT/HCPCS: 99281; 99282; A9270

== ENCOUNTER 2020-07-24 13:40 | Emergency (ER) | payer OTHER ==
[2020-07-24 14:16] LABS: BASOPHILS % (AUTO) 0.6 %; EOSINOPHILS # (AUTO) 0.1 10^3/uL (0.0-0.7); HCT - HEMATOCRIT 43.8 % (37.0-47.0); HGB - HEMOGLOBIN 14.8 g/dL (12.0-16.0); LYMPHOCYTES # (AUTO) 1.9 10^3/uL (1.5-3.5); LYMPHOCYTES % (AUTO) 37.4 %; MEAN CORPUSCULAR HEMOGLOBIN 30.8 pg (27.0-31.0); MEAN CORPUSCULAR HGB CONC 33.8 g/dL (32.0-36.0); MEAN CORPUSCULAR VOLUME 91.3 fL (81.0-99.0); MEAN PLATELET VOLUME 9.6 fL (7.9-10.8); MONOCYTES # (AUTO) 0.4 10^3/uL (0.0-1.0); MONOCYTES % (AUTO) 8.5 %; NEUTROPHILS # (AUTO) 2.6 10^3/uL (1.5-6.6); NEUTROPHILS % (AUTO) 50.9 %; PLT - PLATELET COUNT 244 10^3/uL (130-450); WHITE BLOOD COUNT 5.1 x10^3/uL (4.8-10.8)
[2020-07-24 14:20] LABS: ALBUMIN 4.3 g/dL (3.2-5.5); ALBUMIN/GLOBULIN RATIO 1.3 (1.0-2.2); BILIRUBIN,TOTAL 0.3 mg/dL (0.2-1.0); CREATININE 0.8 mg/dL (0.4-1.0); POTASSIUM 4.4 mmol/L (3.5-5.0); TOTAL PROTEIN 7.5 g/dL (6.7-8.2)
[2020-07-24] MEDS ORDERED: SODIUM CHLORIDE 0.9% 1,000 ML IV STA ×2 (15:28→16:36)
[2020-07-24] MEDS ORDERED: MORPHINE 2 MG/ML CARPUJECT IVP STA ×2 (15:28→16:36)
[2020-07-24] MEDS ORDERED: ONDANSETRON 4 MG/2 ML VIAL IVP STA (15:28)
--- NOTE | 2020-07-24 15:34 | ED Physician Documentation ---
PD HPI ABD PAIN - Stated complaint Stated Complaint: ABD PX, NAUSEA - Chief complaint Chief Complaint: Abd Pain - History obtained from History obtained from: Patient - History of Present Illness Timing - onset: Chronic Pain level max: 6 Pain level now: 5 Quality: Aching, Pain Location: Epigastric Improved by: Vomiting Worsened by: Eating Associated symptoms: Nausea, Vomiting. No: Fever, Hematemesis, Diarrhea, Constipation, Melena, Hematochezia, Dysuria Recently seen: Not recently seen - Additional information Additional information: Patient is a 20-year-old female who presents to the emergency department epigastric abdominal pain. This been ongoing for the past several months to years. She has seen a GI doctor for this. Diagnosed with dyspepsia. She states she is currently on amitriptyline for this. She has had nausea and vomiting as well. She states that the Zofran and Phenergan are not helping at home. Worse with eating and drinking. Nothing makes it better. Review of Systems Constitutional: denies: Fever, Chills Respiratory: denies: Cough GI: reports: Abdominal Pain, Nausea, Vomiting. 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 : None HEENT: None Psych: Bipolar disorder Musculoskeletal: None Derm: None - Past Surgical History Past Surgical History: No General: Cholecystectomy Ortho: Rotator cuff repair - Present Medications Home Medications: Ambulatory Orders Medication Instructions Recorded Confirmed Amitriptyline [Elavil] 100 mg PO DAILY PM 07/26/19 07/24/20 Promethazine [Phenergan] 25 mg ORAL Q8HR PRN 07/26/19 07/24/20 Ondansetron Odt [Zofran] 4 mg TL Q6H PRN #10 tablet 01/25/20 07/24/20 Rizatriptan Benzoate [Maxalt] 10 mg PO DAILY PRN 06/04/20 07/24/20 Sumatriptan Succinate [Imitrex] 100 mg PO DAILY PRN 06/04/20 07/24/20 HYDROcod/ACETAM 5/325 [[place] 5/325] 1 - 2 ea PO Q6H PRN #10 tablet 07/24/20 Ondansetron Odt [Zofran] 4 mg TL Q6H PRN #20 tablet 07/24/20 - Allergies Allergies/Adverse Reactions: Allergies Allergy/AdvReac Type Severity Reaction Status Date / Time naproxen Allergy Edema Verified 07/24/20 13:49 - Social History Does the pt smoke?: Yes Smoking Status: Current every day smoker Does the pt drink ETOH?: Yes Does the pt have substance abuse?: No - Immunizations Immunizations are current?: Yes - POLST Patient has POLST: No PD ED PE NORMAL - Vitals Vital signs reviewed: Yes - General General: Alert and oriented X 3, No acute distress - HEENT HEENT: Moist mucous membranes - Neck Neck: Supple, no meningeal sign - Cardiac Cardiac: RRR - Respiratory Respiratory: No respiratory distress, Clear bilaterally - Abdomen Abdomen: Soft, Non tender, Non distended - Back Back: No CVA TTP - Derm Derm: Warm and dry - Extremities Extremities: No edema - Neuro Neuro: Alert and oriented X 3 - Psych Psych: Normal mood, Normal affect Results - Vitals Vitals: Vital Signs - 24 hr 07/24/20 07/24/20 07/24/20 13:50 16:10 18:17 Temperature 37.1 C 37 C 37 C Heart Rate 112 H 88 85 Respiratory 18 16 16 Rate Blood Pressure 127/99 H 114/62 126/73 O2 Saturation 100 99 96 Oxygen O2 Source Room air - Labs Labs: Laboratory Tests 07/24/20 07/24/20 07/24/20 14:03 14:03 15:40 WBC 5.1 RBC 4.80 Hgb 14.8 Hct 43.8 MCV 91.3 MCH 30.8 MCHC 33.8 RDW 12.0 Plt Count 244 MPV 9.6 Neut # (Auto) 2.6 Lymph # (Auto) 1.9 [place] # (Auto) 0.4 Eos # (Auto) 0.1 Baso # (Auto) 0.0 Absolute Nucleated RBC 0.00 Nucleated RBC % 0.0 Sodium 141 Potassium 4.4 Chloride 103 Carbon Dioxide 27 Anion Gap 11.0 BUN 10 Creatinine 0.8 Estimated GFR (MDRD) 91 Glucose 93 Calcium 10.0 Total Bilirubin 0.3 AST 15 ALT 13 Alkaline Phosphatase 60 Total Protein 7.5 Albumin 4.3 Globulin 3.2 Albumin/Globulin Ratio 1.3 Lipase 35 Urine Color YELLOW Urine Clarity CLEAR Urine pH 6.5 Ur Specific [place] 1.015 Urine Protein NEGATIVE Urine Glucose (UA) NEGATIVE Urine Ketones NEGATIVE Urine Occult Blood NEGATIVE Urine Nitrite NEGATIVE Urine Bilirubin NEGATIVE Urine Urobilinogen 0.2 (NORMAL) Ur Leukocyte Esterase TRACE H Urine RBC None Seen Urine WBC 0-3 Ur Squamous Epith Cells MOD Squamous H Urine Bacteria Few Ur Microscopic Review INDICATED Urine Culture Comments NOT INDICATED Urine HCG, Qual NEGATIVE PD MEDICAL DECISION MAKING - ED course Complexity details: reviewed results, re-evaluated patient, considered differential, d/w patient ED course: Patient given IV fluids and morphine. Pain resolved. Tolerating p.o. without difficulty. Given Zofran as well. She feels at her baseline and would like to go home. She states she is almost out of her Zofran, we will refill this for her. Patient counseled regarding signs and symptoms for which I believe and urgent re-evaluation would be necessary. Patient with good understanding of and agreement to plan and is comfortable going home at this time This document was made in part using voice recognition software. While efforts are made to proofread this document, sound alike and grammatical errors may occur. Departure - Departure Disposition: 01 Home, Self Care Clinical Impression: Abdominal pain Qualifiers: Abdominal location: epigastric Qualified Code(s): R10.13 - Epigastric pain Condition: Good Instructions: ED Abdominal Pain Unkn Cause Follow-Up: KYM LI MD [Primary Care Provider] - Within 1 week Prescriptions: HYDROcod/ACETAM 5/325 [[place] 5/325] 1 - 2 ea PO Q6H PRN #10 tablet PRN Reason: Pain Ondansetron Odt [Zofran] 4 mg TL Q6H PRN #20 tablet PRN Reason: Nausea / Vomiting Comments: Follow up with your doctor for further care. Return if you worsen. Drink plenty of fluids at home. Do not drink alcohol or drive while on narcotic pain medicine. Note that many narcotic pain relievers also contain tylenol/acetaminophen. Please ensure that your total dose of acetaminophen from all sources does not exceed 3 grams (3000mg) per day. You may constipated on this medication, take a stool softener such as "Colace" twice a day while you are on it. Also recommend a zaki-mow-rzuhsvf laxative such as senna or MiraLAX any day that you do not have a bowel movement. If you received narcotic pain medication in the emergency department, do not drive or operate machinery for the next 24 hours. Forms: Activity restrictions Discharge Date/Time: 07/24/20 18:25
[2020-07-24 15:50] LABS: BILIRUBIN,URINE NEGATIVE (NEGATIVE); GLUCOSE, URINE (UA) NEGATIVE (NEGATIVE); KETONES,URINE (UA) NEGATIVE (NEGATIVE); LEUKOCYTE ESTERASE, URINE TRACE (NEGATIVE); NITRITE,URINE NEGATIVE (NEGATIVE); OCCULT BLOOD,URINE NEGATIVE (NEGATIVE); PH,URINE 6.5 PH (5.0-7.5); PROTEIN,URINE NEGATIVE (NEGATIVE); UROBILINOGEN,URINE 0.2 (NORMAL) E.U./dL (NORMAL)
[2020-07-24 15:51] LABS: CLARITY,URINE CLEAR (CLEAR)
[2020-07-24 15:52] LABS: HCG UR QUAL NEGATIVE
[2020-07-24 15:59] LABS: BACTERIA,URINE Few /HPF (None Seen); RBC,URINE None Seen /HPF (0-5); SQUAMOUS EPITHELIAL CELL,UR MOD Squamous (<= Few); WBC,URINE 0-3 /HPF (0-5)
[2020-07-24 18:18] VITALS: BP 126/73
== END 2020-07-24 18:25 | disposition home or self-care (01) ==
LOC: ED 13:40
DX: R10.13 Epigastric pain (principal); F17.200 Nicotine dependence, unspecified, uncomplicated
CPT/HCPCS: 36415; 80053; 81001; 81003; 81025; 83690; 85025; 87086; 96361; 96374; 96375; 96376; 99284

== ENCOUNTER 2020-07-27 05:48 | Emergency (ER) | payer OTHER ==
[2020-07-27] MEDS ORDERED: MORPHINE 2 MG/ML CARPUJECT IVP STA ×2 (06:09→06:40)
[2020-07-27] MEDS ORDERED: FAMOTIDINE 20 MG/2 ML VIAL IVP STA (06:09)
[2020-07-27] MEDS ORDERED: DROPERIDOL 5 MG/2 ML VIAL IVP STA (06:09)
[2020-07-27] MEDS ORDERED: SODIUM CHLORIDE 0.9% 1,000 ML IV STA ×2 (06:09→06:59)
--- NOTE | 2020-07-27 06:30 | ED Physician Documentation ---
PD HPI ABD PAIN - Stated complaint Stated Complaint: AB PX/NAUSEA - Chief complaint Chief Complaint: Abd Pain - History obtained from History obtained from: Patient - History of Present Illness Timing - onset: How many hours ago (3), Today Timing - duration: Hours (3) Timing - details: Abrupt onset, Still present Quality: Cramping, Aching, Pain Location: RUQ, Epigastric Radiation: No: Lower back, Upper back Improved by: No: Vomiting Worsened by: Eating Associated symptoms: Nausea, Vomiting. No: Fever, Diarrhea, Constipation, Dysuria Similar symptoms before: No diagnosis (She states she has had multiple episodes similar to this and takes ondansetron regularly for nausea and will have occasional episodes of intractable vomiting and belly pain and be treated in ERs. Prior GI eval with labs, scans, scopes and even empiric CCY, without improvement. Dx dyspepsia.) Recently seen: Emergency Dept (seen in our ER 4 days ago with similar. She states recently moved from [place] and still works there. Most commonly had been seen at facilities there.) Review of Systems Constitutional: denies: Fever, Chills Nose: denies: Rhinorrhea / runny nose, Congestion Throat: denies: Sore throat Respiratory: denies: Cough GI: reports: Abdominal Pain, Nausea, Vomiting. denies: Constipation, Diarrhea, Hematemesis : reports: Frequency. denies: Hematuria, Discharge Neurologic: reports: Generalized weakness. 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 : None HEENT: None Psych: Bipolar disorder Musculoskeletal: None Derm: None - Past Surgical History Past Surgical History: No General: Cholecystectomy Ortho: Rotator cuff repair - Present Medications Home Medications: Ambulatory Orders Medication Instructions Recorded Confirmed Amitriptyline [Elavil] 100 mg PO DAILY PM 07/26/19 07/27/20 Promethazine [Phenergan] 25 mg ORAL Q8HR PRN 07/26/19 07/27/20 Ondansetron Odt [Zofran] 4 mg TL Q6H PRN #10 tablet 01/25/20 07/27/20 Rizatriptan Benzoate [Maxalt] 10 mg PO DAILY PRN 06/04/20 07/27/20 Sumatriptan Succinate [Imitrex] 100 mg PO DAILY PRN 06/04/20 07/27/20 HYDROcod/ACETAM 5/325 [[place] 5/325] 1 - 2 ea PO Q6H PRN #10 tablet 07/24/20 07/27/20 Ondansetron Odt [Zofran] 4 mg TL Q6H PRN #20 tablet 07/24/20 07/27/20 - Allergies Allergies/Adverse Reactions: Allergies Allergy/AdvReac Type Severity Reaction Status Date / Time naproxen Allergy Edema Verified 07/27/20 05:53 - Social History Does the pt smoke?: Yes Smoking Status: Current every day smoker Does the pt drink ETOH?: Yes Does the pt have substance abuse?: No - Immunizations Immunizations are current?: Yes - POLST Patient has POLST: No PD ED PE NORMAL - Vitals Vital signs reviewed: Yes - General General: Alert and oriented X 3, Well developed/nourished, Other (appears uncomfortable, holding upper abd. ) - HEENT HEENT: Pharynx benign - Neck Neck: Supple, no meningeal sign, No adenopathy - Cardiac Cardiac: RRR, No murmur - Respiratory Respiratory: Clear bilaterally - Abdomen Abdomen: Normal bowel sounds, Soft, Non distended, No organomegaly, Other (Tender with guarding in the epigastric and right upper quadrant area. Local percussion tenderness. No rebound or rigidity. Lower abdomen not tender.) - Female Female : Deferred - Rectal Rectal: Deferred - Back Back: No CVA TTP - Derm Derm: Normal color, Warm and dry - Neuro Neuro: Alert and oriented X 3, No motor deficit, Normal speech Results - Vitals Vitals: Vital Signs - 24 hr 07/27/20 07/27/20 05:53 05:57 Temperature 36.5 C 36.5 C Heart Rate 96 96 Respiratory 16 16 Rate Blood Pressure 125/76 125/76 O2 Saturation 99 99 Oxygen O2 Source Room air - Labs Labs: Laboratory Tests 07/27/20 06:13 Sodium 137 Potassium 3.7 Chloride 105 Carbon Dioxide 23 Anion Gap 9.0 BUN 7 Creatinine 0.8 Estimated GFR (MDRD) 91 Glucose 115 H Calcium 8.6 Total Bilirubin 0.6 AST 20 ALT 32 Alkaline Phosphatase 60 Total Protein 6.8 Albumin 3.9 Globulin 2.9 Albumin/Globulin Ratio 1.3 Lipase 23 PD MEDICAL DECISION MAKING - ED course Complexity details: reviewed old records, reviewed results, re-evaluated patient, considered differential (Unclear diagnosis with multiple work-ups in the past and GI evaluations. Current diagnosis of dyspepsia. She states ondansetron and pain medicines typically help. Denies regular alcohol nor any cannabis use.), d/w patient
[2020-07-27 06:31] LABS: ALBUMIN 3.9 g/dL (3.2-5.5); ALBUMIN/GLOBULIN RATIO 1.3 (1.0-2.2); BILIRUBIN,TOTAL 0.6 mg/dL (0.2-1.0); CALCIUM 8.6 mg/dL (8.5-10.3); CREATININE 0.8 mg/dL (0.4-1.0); POTASSIUM 3.7 mmol/L (3.5-5.0); TOTAL PROTEIN 6.8 g/dL (6.7-8.2)
[2020-07-27] MEDS ORDERED: ONDANSETRON 4 MG/2 ML VIAL IVP STA (06:41)
[2020-07-27 07:36] VITALS: BP 103/69
[2020-07-27 07:40] LABS: BILIRUBIN,URINE NEGATIVE (NEGATIVE); GLUCOSE, URINE (UA) NEGATIVE (NEGATIVE); KETONES,URINE (UA) NEGATIVE (NEGATIVE); LEUKOCYTE ESTERASE, URINE NEGATIVE (NEGATIVE); MUDS CUTOFF CONCENTRATIONS CUTOFF CONC BELOW:; NITRITE,URINE NEGATIVE (NEGATIVE); OCCULT BLOOD,URINE NEGATIVE (NEGATIVE); PH,URINE 6.5 PH (5.0-7.5); PROTEIN,URINE NEGATIVE (NEGATIVE); UROBILINOGEN,URINE 0.2 (NORMAL) E.U./dL (NORMAL)
[2020-07-27 07:41] LABS: CLARITY,URINE CLEAR (CLEAR)
[2020-07-27 07:49] LABS: AMPHETAMINE SCREEN,URINE NEGATIVE (NEGATIVE); BARBITURATE SCREEN,UR NEGATIVE (NEGATIVE); BENZODIAZEPINES SCREEN, URINE NEGATIVE (NEGATIVE); COCAINE SCREEN URINE NEGATIVE (NEGATIVE); METHADONE SCREEN, URINE NEGATIVE (NEGATIVE); METHAMPHETAMINES SCREEN, URINE NEGATIVE (NEGATIVE); OPIATE SCREEN, URINE POSITIVE (NEGATIVE); OXYCODONE SCREEN, URINE NEGATIVE (NEGATIVE); PROPOXYPHENE SCREEN, URINE NEGATIVE (NEGATIVE); THC CANNABINOID SCREEN, URINE NEGATIVE (NEGATIVE); TRICYCLIC ANTIDEPRESSANT,URINE POSITIVE (NEGATIVE)
--- NOTE | 2020-07-27 08:18 | ED Physician Documentation ---
ED Addendum - Addendum Addendum: 07/27/20 08:17am Patient endorsed to me by Dr. Trinh awaiting urinalysis results. Her UA came back without evidence of infection. She is feeling better and requesting pain medicine to go home with. She has Zofran at home. Tolerating p.o. at this time. Strict return precautions given. She will follow up with her primary doctor for referral to gastroenterology.
== END 2020-07-27 08:26 | disposition home or self-care (01) ==
LOC: ED 05:48
DX: K30 Functional dyspepsia (principal); F17.200 Nicotine dependence, unspecified, uncomplicated
CPT/HCPCS: 36415; 80053; 80306; 81001; 81003; 83690; 87086; 96374; 96375; 99284

== ENCOUNTER 2021-07-03 20:53 | Emergency (ER) | payer OTHER ==
[2021-07-03 21:03] VITALS: BP 137/74
--- NOTE | 2021-07-03 21:48 | XRAY Report ---
PROCEDURE: Wrist 4 View LT INDICATIONS: Trauma TECHNIQUE: 4 views of the wrist were acquired. COMPARISON: None FINDINGS: Bones: No fractures or dislocations. No suspicious bony lesions. Scaphoid view: Negative Soft tissues: No suspicious soft tissue calcifications. IMPRESSION: No acute fracture. No osseous lesion. If symptoms and/or clinical suspicion for pathology continue, f urther assessment with repeat plain films, or advanced imaging (e.g., CT, MRI, or bone scan) is recom mended for further assessment. Reviewed by: Genevieve Garrido MD on 07/03/2021 9:47 PM PST Approved by: Genevieve Garrido MD on 07/03/2021 9:47 PM [facility] Station ID: [id number]
[2021-07-03] MEDS ORDERED: HYDROcod/ACETAM 5/325 MG TABLET PO STA (21:56)
--- NOTE | 2021-07-03 22:00 | ED Physician Documentation ---
PD HPI UPPER EXT INJURY - Stated complaint Stated Complaint: L HAND PX - Chief complaint Chief Complaint: Trauma Ext - History obtained from History obtained from: Patient - History of Present Illness Location: Left, Wrist Pain level max: 7 Pain level now: 5 Improved by: Rest Worsened by: Moving Associated symptoms: Swelling, Discolored. No: Weakness, Numbness, Tingling - Additonal information Additional information: 21-year-old female presents to the emergency department complaining of pain to the left wrist. Worse with movement, better with rest. She states there is swelling and bruising to the dorsum of the left hand as well. She states that she pushed off with the wrist behind her when she felt a pop and a snap. She states pain and swelling since that time. Does not recall any other injuries. Occasional tingling. 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 HEENT: None Psych: Bipolar disorder Musculoskeletal: None Derm: None - Past Surgical History Past Surgical History: No General: Cholecystectomy Ortho: Rotator cuff repair - Present Medications Home Medications: Ambulatory Orders Medication Instructions Recorded Confirmed Amitriptyline [Elavil] 100 mg PO DAILY PM 07/26/19 07/27/20 Promethazine [Phenergan] 25 mg ORAL Q8HR PRN 07/26/19 07/27/20 Ondansetron Odt [Zofran] 4 mg TL Q6H PRN #10 tablet 01/25/20 07/27/20 Rizatriptan Benzoate [Maxalt] 10 mg PO DAILY PRN 06/04/20 07/27/20 Sumatriptan Succinate [Imitrex] 100 mg PO DAILY PRN 06/04/20 07/27/20 HYDROcod/ACETAM 5/325 [[place] 5/325] 1 - 2 ea PO Q6H PRN #10 tablet 07/24/20 07/27/20 Ondansetron Odt [Zofran] 4 mg TL Q6H PRN #20 tablet 07/24/20 07/27/20 Acetaminophen [Tylenol] 650 mg PO Q6H PRN #30 tablet 07/27/20 HYDROcod/ACETAM 5/325 [[place] 5/325] 1 - 2 ea PO Q6H PRN #14 tablet 07/03/21 - Allergies Allergies/Adverse Reactions: Allergies Allergy/AdvReac Type Severity Reaction Status Date / Time naproxen Allergy Edema Verified 07/03/21 21:03 - Social History Does the pt smoke?: Yes Smoking Status: Current every day smoker Does the pt drink ETOH?: Yes Does the pt have substance abuse?: No - Immunizations Immunizations are current?: Yes - POLST Patient has POLST: No PD ED PE NORMAL - Vitals Vital signs reviewed: Yes - General General: Alert and oriented X 3, No acute distress - Derm Derm: Warm and dry - Extremities Extremities: Other (Tender to palpation over the left hand, dorsum of the hand, especially the second metacarpal and third metacarpal. No gross deformity. Mild swelling. No tenderness over the anatomical snuffbox. Neurovascular intact) - Neuro Neuro: Alert and oriented X 3 Results - Vitals Vitals: Vital Signs - 24 hr 07/03/21 21:01 Temperature 36.2 C L Heart Rate 82 Respiratory 16 Rate Blood Pressure 137/74 H O2 Saturation 100 Oxygen O2 Source Room air - Rads (name of study) Left wrist x-ray Radiology: Final report received, EMP read contemporaneously, See rad report (No acute abnormality) PD MEDICAL DECISION MAKING - ED course Complexity details: reviewed results, re-evaluated patient, considered differential, d/w patient ED course: Placed in a Velcro thumb spica. We will treat as a sprain. Unclear etiology. Recommend that she follow-up closely with her doctor for further care. Will prescribe pain medication for her she does appear to be in a significant amount of pain. Neurovascular intact. I am prescribing a short course of short-acting opioid pain medication for this patient. 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 I have discussed that the opioids are for short term therapy only, and will not be refilled from the ED. patient counseled regarding signs and symptoms for which I believe and urgent re-evaluation would be necessary. Patient with good understanding of and agreement to plan and is comfortable going home at this time This document was made in part using voice recognition software. While efforts are made to proofread this document, sound alike and grammatical errors may occur. Departure - Departure Disposition: 01 Home, Self Care Clinical Impression: Sprain of left wrist Qualifiers: Encounter type: initial encounter Qualified Code(s): S63.502A - Unspecified sprain of left wrist, initial encounter Condition: Good Instructions: ED Sprain Wrist Follow-Up: your,doctor in 1 week [Other] Prescriptions: HYDROcod/ACETAM 5/325 [[place] 5/325] 1 - 2 ea PO Q6H PRN #14 tablet PRN Reason: Pain Comments: The cause of your symptoms is unclear today. We will try you in a thumb spica splint. Wear this for the next week. Follow-up with your doctor next week for repeat evaluation. Return if you worsen. Your x-ray does not show any acute abnormalities. Your prescriptions were sent to the [facility] pharmacy. I am prescribing a short course of narcotic pain medication for you. These are potentially dangerous and addictive medications that should be used carefully. These medications may constipate you. Take an foxc-cjg-rtprbky stool softener (docusate) twice daily with plenty of water while taking these medications. If you go 24 hours without a bowel movement, take cqlz-hgb-qgxezjx miralax, per package instructions. Do not drink or drive while taking these medications. If you received narcotic or sedating medications while in the emergency department, do not drive for 24 hours. Store this medication in a safe, secure place and out of reach of children. It is a violation of federal law to give or sell this medication to another person or to use in a manner other than prescribed. The ED will not refill narcotic prescriptions, including prescriptions lost or stolen. To dispose of unwanted medications: 1. [facility] at [address] in [place] has a medication drop box. They accept prescription medications (in pill form) Friday through Friday 9:00 a.m. to 5:00 p.m. 2. The [facility] accepts prescription medications (in pill form only) for disposal year round. Call for more information. 3. Contact the [facility] for the next [facility] sponsored prescription drug collection event. , [phone], or [phone]; Discharge Date/Time: 07/03/21 22:22
== END 2021-07-03 22:22 | disposition home or self-care (01) ==
LOC: ED 20:53
DX: S63.502A Unspecified sprain of left wrist, initial encounter (principal); X58.XXXA Exposure to other specified factors, initial encounter; F17.200 Nicotine dependence, unspecified, uncomplicated
CPT/HCPCS: 73110; 99283; A9270

== ENCOUNTER 2021-07-17 19:33 | Emergency (ER) | payer OTHER ==
[2021-07-17] MEDS ORDERED: cephALEXin 250 MG CAPSULE PO STA (20:07)
--- NOTE | 2021-07-17 20:08 | ED Physician Documentation ---
PD HPI SKIN - Stated complaint Stated Complaint: BELLY BUTTON PX - Chief complaint Chief Complaint: Wound - History obtained from History obtained from: Patient - Additional information Additional information: 5 days of bellybutton pain and foul-smelling drainage. She had laparoscopic surgery there but it was about a year ago. She also notes decreased urination despite increasing oral fluid intake over the last couple of days. Review of Systems Constitutional: denies: Fever, Chills Nose: reports: Reviewed and negative Throat: reports: Reviewed and negative Cardiac: reports: Reviewed and negative Respiratory: reports: Reviewed and negative PD PAST MEDICAL HISTORY - Past Medical History Cardiovascular: None Respiratory: None Neuro: Headaches, Migraines Endocrine/Autoimmune: Other GI: GERD, Other RN URGENT CARE: None : None HEENT: None Psych: Bipolar disorder Musculoskeletal: None Derm: None - Past Surgical History Past Surgical History: No General: Cholecystectomy Ortho: Rotator cuff repair - Present Medications Home Medications: Ambulatory Orders Medication Instructions Recorded Confirmed Amitriptyline [Elavil] 100 mg PO DAILY PM 07/26/19 07/27/20 Promethazine [Phenergan] 25 mg ORAL Q8HR PRN 07/26/19 07/27/20 Rizatriptan Benzoate [Maxalt] 10 mg PO DAILY PRN 06/04/20 07/27/20 Sumatriptan Succinate [Imitrex] 100 mg PO DAILY PRN 06/04/20 07/27/20 Ondansetron Odt [Zofran] 4 mg TL Q6H PRN #20 tablet 07/24/20 07/27/20 Acetaminophen [Tylenol] 650 mg PO Q6H PRN #30 tablet 07/27/20 cephALEXin [Keflex] 500 mg PO Q6H #28 cap 07/17/21 diazePAM [Valium] 2 tab PO ONCE #2 tablet 07/17/21 - Allergies Allergies/Adverse Reactions: Allergies Allergy/AdvReac Type Severity Reaction Status Date / Time naproxen Allergy Edema Verified 07/03/21 21:03 - Social History Does the pt smoke?: Yes Smoking Status: Current every day smoker Does the pt drink ETOH?: Yes Does the pt have substance abuse?: No - Immunizations Immunizations are current?: Yes - POLST Patient has POLST: No PD ED PE NORMAL - Vitals Vital signs reviewed: Yes - General General: Alert and oriented X 3, Other (She is very anxious and has a 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 She does not tolerate exam well but there is no obvious abscess) - Back Back: No CVA TTP, No spinal TTP - Derm Derm: Normal color, Warm and dry - Extremities Extremities: No edema, No calf tenderness / cord - Neuro Neuro: Alert and oriented X 3, Normal speech Results - Vitals Vitals: Vital Signs - 24 hr 07/17/21 19:39 Temperature 98.8 C H Heart Rate 100 Respiratory 22 Rate Blood Pressure 131/80 H O2 Saturation 100 Oxygen O2 Source Patient supplied BIPAP - Labs Labs: Laboratory Tests 07/17/21 07/17/21 20:16 20:16 WBC 6.3 RBC 4.63 Hgb 14.6 Hct 42.5 MCV 91.8 MCH 31.5 H MCHC 34.4 RDW 12.1 Plt Count 247 MPV 10.0 Neut # (Auto) 3.2 Lymph # (Auto) 2.5 [place] # (Auto) 0.5 Eos # (Auto) 0.1 Baso # (Auto) 0.0 Absolute Nucleated RBC 0.00 Nucleated RBC % 0.0 Sodium 135 Potassium 3.9 Chloride 99 L Carbon Dioxide 28 Anion Gap 8.0 BUN 11 Creatinine 0.7 Estimated GFR (MDRD) 105 Glucose 85 Calcium 8.7 PD MEDICAL DECISION MAKING - ED course ED course: 21-year-old woman presents with cellulitis of the umbilicus. Examination is difficult due to profound anxiety, she has a specific phobia about the bellybut ton. Does not seem to be an abscess though. She had a secondary complaint of having decreased urine output. This is despite drinking plenty of water. She has no suprapubic pain or sensation of retention and as such renal panel was done without pertinent positive findings. Departure - Departure Disposition: 01 Home, Self Care Clinical Impression: Abdominal wall cellulitis Condition: Good Record reviewed to determine appropriate education?: Yes Instructions: ED Infec Skin Cellulitis Prescriptions: cephALEXin [Keflex] 500 mg PO Q6H #28 cap diazePAM [Valium] 2 tab PO ONCE #2 tablet Comments: As discussed lab work looks okay, I am treating you for skin infection of your umbilicus. Besides antibiotics, I also [facility] a [facility] Should you not improve over the next few days and require reevaluation. I encourage you to take the Valium may be 20 minutes before presenting for reevaluation such that a thorough examination can be done without too much anxiety on your part. Follow-up with your primary care physician, next available appointment regardless of improvement.
[2021-07-17 20:46] LABS: BASOPHILS % (AUTO) 0.5 %; EOSINOPHILS # (AUTO) 0.1 10^3/uL (0.0-0.7); EOSINOPHILS % (AUTO) 1.4 %; HCT - HEMATOCRIT 42.5 % (37.0-47.0); HGB - HEMOGLOBIN 14.6 g/dL (12.0-16.0); LYMPHOCYTES # (AUTO) 2.5 10^3/uL (1.5-3.5); LYMPHOCYTES % (AUTO) 39.6 %; MEAN CORPUSCULAR HEMOGLOBIN 31.5 pg (27.0-31.0); MEAN CORPUSCULAR HGB CONC 34.4 g/dL (32.0-36.0); MEAN CORPUSCULAR VOLUME 91.8 fL (81.0-99.0); MONOCYTES # (AUTO) 0.5 10^3/uL (0.0-1.0); MONOCYTES % (AUTO) 7.5 %; NEUTROPHILS # (AUTO) 3.2 10^3/uL (1.5-6.6); NEUTROPHILS % (AUTO) 50.7 %; PLT - PLATELET COUNT 247 10^3/uL (130-450); RED BLOOD COUNT 4.63 10^6/uL (4.20-5.40); RED CELL DISTRIBUTION WIDTH 12.1 % (12.0-15.0); WHITE BLOOD COUNT 6.3 x10^3/uL (4.8-10.8)
[2021-07-17 20:55] LABS: CALCIUM 8.7 mg/dL (8.5-10.3); CREATININE 0.7 mg/dL (0.4-1.0); POTASSIUM 3.9 mmol/L (3.5-5.0)
[2021-07-17] MEDS ORDERED: oxyCODONE/ACET 5/325 Prepack 4 PO STA (20:59)
[2021-07-17 21:24] VITALS: BP 128/90
== END 2021-07-17 21:23 | disposition home or self-care (01) ==
LOC: ED 19:33
DX: L03.311 Cellulitis of abdominal wall (principal); F17.200 Nicotine dependence, unspecified, uncomplicated
CPT/HCPCS: 36415; 80048; 85025; 99283; A9270